=== PATIENT | female | born 1970 | race Two or more races ===

== ENCOUNTER 2022-02-14 00:06 | Emergency (ER) | payer SELFPAY ==
[~2022-02-14] VITALS: Ht 162.6 cm; Wt 114.3 kg
[2022-02-14 01:30] LABS: Basophils # (auto) 0.1 10 ^3/uL (0-0.2); Basophils % (auto) 0.6 % (0.0-2.0); Eosinophils # (auto) 0.2 10 ^3/uL (0-0.8); Eosinophils % (auto) 1.5 % (0.0-7.0); Hematocrit 42.5 % (36.0-46.0); Hemoglobin 14.8 g/dL (12.2-16.2); Lymphocytes # (auto) 1.3 10 ^3/uL (0.4-5.4); Mean Corpuscular Hemoglobin 30.7 pg (28.0-32.0); Mean Corpuscular Hgb Conc. 34.8 g/dL (32.0-36.0); Mean Corpuscular Volume 88.1 fL (80.0-100.0); Monocytes # (auto) 0.8 10 ^3/uL (0-1.3); Monocytes % (auto) 7.4 % (0.0-12.0); Neutrophils # (auto) 8.7 10 ^3/uL (1.6-8.6); Neutrophils % (auto) 78.5 % (37.0-80.0); Red Blood Cells 4.82 10^6/uL (4.0-5.20); Red Cell Distribution Width 12.8 % (11.8-14.3); White Blood Cell 11.1 10^3/uL (4.4-10.8)
[2022-02-14 01:39] LABS: Albumin 3.7 g/dL (3.4-5.0); BUN/Creatinine Ratio 14.6; Calcium 9.2 mg/dL (8.5-10.1); Magnesium 2.4 mg/dL (1.6-2.6); Potassium 3.8 mmol/L (3.5-5.1)
[2022-02-14 01:44] LABS: Bilirubin, Total 0.8 mg/dL (0.2-1.0); Total Protein 7.2 g/dL (6.4-8.2)
[2022-02-14 01:52] VITALS: BP 154/94
[2022-02-14] MEDS ORDERED: ASPirin 325 MG TAB PO ONE (02:00)
== END 2022-02-14 04:20 | disposition left against medical advice (07) ==
LOC: ER 00:17
DX: R07.89 Other chest pain (principal); R11.0 Nausea; Z53.21 Procedure and treatment not carried out due to patient leaving prior to being seen by health care provider
CPT/HCPCS: 36415; 80053; 83735; 84484; 85025; 93005

== ENCOUNTER 2023-06-14 11:40 | Inpatient (IN) | payer MEDICAID, OTHER ==
[~2023-06-14] VITALS: Ht 167.6 cm; Wt 114.8 kg
[2023-06-14 12:40] LABS: Urine Bacteria MOD /hpf (None Seen); Urine Blood Negative /uL (Negative); Urine Mucus FEW (None Seen); Urine Specific Gravity 1.031 (1.001-1.035); Urine WBC 6 /hpf (0 - 5)
[2023-06-14 12:40] LABS: Albumin 4.2 g/dL (3.4-5.0); Calcium 9.7 mg/dL (8.5-10.1); Potassium 4.3 mmol/L (3.5-5.1)
[2023-06-14 12:44] LABS: BUN/Creatinine Ratio 12.5 (10.0-20.0); Total Protein 7.4 g/dL (6.4-8.2)
[2023-06-14 12:47] LABS: Basophils # (auto) 0.1 10 ^3/uL (0-0.2); Basophils % (auto) 0.8 % (0.0-2.0); Eosinophils # (auto) 0.1 10 ^3/uL (0-0.8); Eosinophils % (auto) 1.9 % (0.0-7.0); Hematocrit 46.9 % (36.0-46.0); Hemoglobin 15.8 g/dL (12.2-16.2); Lymphocytes % (auto) 26.3 % (10.0-50.0); Mean Corpuscular Hemoglobin 30.1 pg (28.0-32.0); Mean Corpuscular Hgb Conc. 33.7 g/dL (32.0-36.0); Mean Corpuscular Volume 89.2 fL (80.0-100.0); Monocytes # (auto) 0.7 10 ^3/uL (0-1.3); Monocytes % (auto) 9.6 % (0.0-12.0); Neutrophils # (auto) 4.8 10 ^3/uL (1.6-8.6); Neutrophils % (auto) 61.4 % (37.0-80.0); Nucleated Red Blood Cells % 0.2 %; Red Blood Cells 5.26 10^6/uL (4.0-5.20); Red Cell Distribution Width 13.1 % (11.8-14.3); White Blood Cell 7.8 10^3/uL (4.4-10.8)
[2023-06-14] MEDS ORDERED: MORPHINE SULFATE 4 MG/ML SYR/VIAL IV ONE (15:00)
[2023-06-14] MEDS ORDERED: SODIUM CHLORIDE 0.9% 500 ML IVB ONE (15:00)
[2023-06-14] MEDS ORDERED: ONDANSETRON HCL 4 MG/2 ML VIAL IV ONE (15:00)
[2023-06-14] MEDS ORDERED: PANTOPRAZOLE 40 MG/10 ML VIAL INJ IV ONE (15:00)
[2023-06-14] MEDS ORDERED: HYDROmorphone HCL 2 MG/ML VL/or syr IV PRN (16:30)
[2023-06-14] MEDS ORDERED: DOCUSATE SOD 100 MG CAP PO PRN (16:30)
[2023-06-14] MEDS ORDERED: PIPERACILLIN-TAZO 4.5GM 100 ML IV SCH (16:30)
[2023-06-14] MEDS ORDERED: ACETAMINOPHEN 325 MG TAB PO PRN (16:30)
[2023-06-14] MEDS ORDERED: HYDROcodone-ACET 5/325MG TAB PO PRN (16:30)
[2023-06-14] MEDS ORDERED: hydrALAZINE HCL 20 MG/ML VL IV PRN (16:45)
[2023-06-14] MEDS ORDERED: diphenhdrAMINE HCL 50 MG/1 ML VL IV ONE (18:00)
[2023-06-14] MEDS: PANTOPRAZOLE 40 MG/10 ML VIAL INJ IV SCH (22:45)
[2023-06-14] MEDS: SODIUM CHLOR 0.9% PF (SALINE LOCK) 10ML VIAL/SYR IV SCH (22:45)
[2023-06-14] MEDS: metroNIDAZOLE 500MG/100ML 100 ML IV SCH (22:46)
[2023-06-15] MEDS: SODIUM CHLOR 0.9% PF (SALINE LOCK) 10ML VIAL/SYR IV SCH ×3 (06:00→21:10)
[2023-06-15] MEDS ORDERED: cefTRIAXone 1GM/50ML D5W 50 ML IV SCH (09:00)
[2023-06-15] MEDS: metroNIDAZOLE 500MG/100ML 100 ML IV SCH ×3 (09:10→21:09)
[2023-06-15] MEDS: PANTOPRAZOLE 40 MG/10 ML VIAL INJ IV SCH ×2 (09:39→21:09)
[2023-06-15 10:40] LABS: Basophils # (auto) 0.1 10 ^3/uL (0-0.2); Basophils % (auto) 0.9 % (0.0-2.0); Eosinophils # (auto) 0.3 10 ^3/uL (0-0.8); Eosinophils % (auto) 3.5 % (0.0-7.0); Hematocrit 43.2 % (36.0-46.0); Hemoglobin 14.4 g/dL (12.2-16.2); Lymphocytes # (auto) 1.1 10 ^3/uL (0.4-5.4); Lymphocytes % (auto) 12.3 % (10.0-50.0); Mean Corpuscular Hemoglobin 29.9 pg (28.0-32.0); Mean Corpuscular Hgb Conc. 33.4 g/dL (32.0-36.0); Mean Corpuscular Volume 89.7 fL (80.0-100.0); Monocytes # (auto) 0.5 10 ^3/uL (0-1.3); Monocytes % (auto) 5.4 % (0.0-12.0); Neutrophils # (auto) 6.9 10 ^3/uL (1.6-8.6); Neutrophils % (auto) 77.9 % (37.0-80.0); Red Blood Cells 4.81 10^6/uL (4.0-5.20); Red Cell Distribution Width 13.1 % (11.8-14.3); White Blood Cell 8.8 10^3/uL (4.4-10.8)
[2023-06-15 10:58] LABS: Albumin 3.6 g/dL (3.4-5.0)
[2023-06-15 11:03] LABS: BUN/Creatinine Ratio 10.8 (10.0-20.0); Bilirubin, Total 0.9 mg/dL (0.2-1.0); Total Protein 7.3 g/dL (6.4-8.2)
[2023-06-15 13:49] LABS: Cholesterol 169 mg/dL (< 200); HDL Cholesterol 35 mg/dL (40-59); LDL Cholesterol 113 mg/dL (< 100); Triglycerides 114 mg/dL (< 150)
[2023-06-15 14:20] VITALS: BP 108/84; PULSE 86; RESP 16; TEMP 98.6; O2SAT 94
[2023-06-15] MEDS: ONDANSETRON HCL 4 MG/2 ML VIAL IV PRN (15:59)
[2023-06-15 16:05] VITALS: RESP 18; O2SAT 98
[2023-06-15] MEDS: cefTRIAXone 1GM/50ML D5W 50 ML IV SCH (17:17)
[2023-06-15 17:39] VITALS: BP 123/63; PULSE 77; RESP 18; TEMP 98.6; O2SAT 98
[2023-06-15 20:00] VITALS: PULSE 71; PULSE 89; RESP 22; O2SAT 93
[2023-06-16 05:00] VITALS: BP 129/60; PULSE 77; RESP 22; TEMP 98.3; O2SAT 94
[2023-06-16] MEDS: SODIUM CHLOR 0.9% PF (SALINE LOCK) 10ML VIAL/SYR IV SCH ×2 (05:00→14:13)
[2023-06-16] MEDS: metroNIDAZOLE 500MG/100ML 100 ML IV SCH ×2 (05:00→14:14)
[2023-06-16] MEDS: ONDANSETRON HCL 4 MG/2 ML VIAL IV PRN (05:00)
[2023-06-16 08:00] VITALS: PULSE 60; PULSE 69; RESP 16; O2SAT 96
[2023-06-16] MEDS ORDERED: OMNIPAQUE 12mg/ml 500ml ORAL SOLUTION PO ONE (08:42)
[2023-06-16 09:00] VITALS: BP 103/62; PULSE 60; RESP 16; TEMP 98.6; O2SAT 96
[2023-06-16 09:11] LABS: Basophils # (auto) 0.1 10 ^3/uL (0-0.2); Basophils % (auto) 0.9 % (0.0-2.0); Eosinophils # (auto) 0.2 10 ^3/uL (0-0.8); Eosinophils % (auto) 3.1 % (0.0-7.0); Hematocrit 42.4 % (36.0-46.0); Hemoglobin 14.3 g/dL (12.2-16.2); Lymphocytes # (auto) 1.1 10 ^3/uL (0.4-5.4); Lymphocytes % (auto) 17.4 % (10.0-50.0); Mean Corpuscular Hemoglobin 30.4 pg (28.0-32.0); Mean Corpuscular Hgb Conc. 33.8 g/dL (32.0-36.0); Mean Corpuscular Volume 90.2 fL (80.0-100.0); Monocytes # (auto) 0.5 10 ^3/uL (0-1.3); Monocytes % (auto) 8.3 % (0.0-12.0); Neutrophils # (auto) 4.4 10 ^3/uL (1.6-8.6); Neutrophils % (auto) 70.3 % (37.0-80.0); Nucleated Red Blood Cells % 0.1 %; Red Blood Cells 4.71 10^6/uL (4.0-5.20); Red Cell Distribution Width 13.1 % (11.8-14.3); White Blood Cell 6.3 10^3/uL (4.4-10.8)
[2023-06-16] MEDS: PANTOPRAZOLE 40 MG/10 ML VIAL INJ IV SCH (09:18)
[2023-06-16 09:29] LABS: Potassium 4.2 mmol/L (3.5-5.1)
[2023-06-16] MEDS ORDERED: IOHEXOL 300 MG/ML 100ML BOTTLE IJ ONE (11:49)
[2023-06-16 13:00] VITALS: BP 116/59; PULSE 68; RESP 16; TEMP 98.5; O2SAT 92
[2023-06-16] MEDS ORDERED: MET500T PO (14:23)
[2023-06-16] MEDS ORDERED: LEVO500T91 PO (14:23)
[2023-06-16] MEDS ORDERED: PANT40TA2 PO (14:23)
[2023-06-16 14:55] VITALS: BP 116/59; PULSE 68; RESP 16; TEMP 98.5; O2SAT 92
[2023-06-16] MEDS: cefTRIAXone 1GM/50ML D5W 50 ML IV SCH (15:59)
[2023-06-19] MEDS ORDERED: ZOFR4T PO (10:53)
== END 2023-06-16 17:50 | disposition home or self-care (01) ==
LOC: ER 11:40 → TELE 16:39 → TELE-CENTR 06-15 13:52
PROVIDERS: ADMIT Internal Medicine; ATTEND Student in an Organized Health Care Education/Training Program
DX: K80.50 Calculus of bile duct without cholangitis or cholecystitis without obstruction (principal); E66.01 Morbid (severe) obesity due to excess calories; R73.9 Hyperglycemia, unspecified; N39.0 Urinary tract infection, site not specified; K21.9 Gastro-esophageal reflux disease without esophagitis; Z88.1 Allergy status to other antibiotic agents; Z90.710 Acquired absence of both cervix and uterus; Z88.8 Allergy status to other drugs, medicaments and biological substances; Z68.41 Body mass index [BMI] 40.0-44.9, adult
CPT/HCPCS: 36415; 74177; 76705; 78226; 80048; 80053; 80061; 81001; 83036; 83690; 84484; 85025; 87040; 93005; C9113; G0378; J0696; J2405; J2543; J3490

== ENCOUNTER 2023-12-01 12:53 | Emergency (ER) | payer BC, MEDICAID ==
[~2023-12-01] VITALS: Ht 162.6 cm; Wt 112.4 kg
[~2023-12-01 12:53] MED LIST: LEVO500T91 PO; MET500T PO; PANT40TA2 PO; ZOFR4T PO
[2023-12-01 14:03] VITALS: BP 135/90
[2023-12-01] MEDS ORDERED: IPRATROPIUM BROM 0.5 MG/2.5ML INH SOL NEB ONE (14:15)
[2023-12-01] MEDS ORDERED: ALBUTEROL SULF 2.5 MG/0.5ML(0.5%) NEB SOLN NEB ONE (14:15)
[2023-12-01] MEDS ORDERED: CIPR-173 PO (14:25)
[2023-12-01] MEDS ORDERED: PRED20TA2 PO (14:25)
[2023-12-01] MEDS ORDERED: ALBU108A5 IN (14:25)
[2023-12-01 14:41] VITALS: PULSE 102; RESP 17; O2SAT 98
== END 2023-12-01 14:43 | disposition home or self-care (01) ==
LOC: ER 12:53
DX: J20.9 Acute bronchitis, unspecified (principal); R07.89 Other chest pain; K21.9 Gastro-esophageal reflux disease without esophagitis; E03.9 Hypothyroidism, unspecified; Z90.49 Acquired absence of other specified parts of digestive tract; Z90.710 Acquired absence of both cervix and uterus
CPT/HCPCS: 71046; 94640; 99283; J7644

== ENCOUNTER 2024-04-27 12:02 | Emergency (ER) | payer SELFPAY ==
[~2024-04-27] VITALS: Ht 160 cm; Wt 112.8 kg
[~2024-04-27 12:02] MED LIST changes: +ALBU108A5 IN; +CIPR-173 PO; +PRED20TA2 PO
[2024-04-27 12:51] VITALS: BP 123/67; PULSE 94; RESP 18; TEMP 97.9; O2SAT 100
[2024-04-27] MEDS ORDERED: IBUP-1456 PO (13:25)
[2024-04-27] MEDS ORDERED: AUG875T PO (13:25)
== END 2024-04-27 13:29 | disposition home or self-care (01) ==
LOC: ER 12:02
DX: J01.00 Acute maxillary sinusitis, unspecified (principal); K21.9 Gastro-esophageal reflux disease without esophagitis; Z88.1 Allergy status to other antibiotic agents; Z88.8 Allergy status to other drugs, medicaments and biological substances; Z79.899 Other long term (current) drug therapy; Z90.49 Acquired absence of other specified parts of digestive tract; Z98.890 Other specified postprocedural states; Z90.710 Acquired absence of both cervix and uterus

== ENCOUNTER 2024-05-07 13:06 | Emergency (ER) | payer SELFPAY ==
[~2024-05-07] VITALS: Ht 160 cm; Wt 113.0 kg
[~2024-05-07 13:06] MED LIST changes: +AUG875T PO; +IBUP-1456 PO
[2024-05-07] MEDS ORDERED: NAPR-746 PO (14:55)
[2024-05-07 15:08] VITALS: BP 148/88; PULSE 94; RESP 18; TEMP 98.5; O2SAT 95
[2024-05-07] MEDS: KETOROLAC TROMETH 60MG/2ML VIAL IM ONE (15:09)
== END 2024-05-07 14:54 | disposition home or self-care (01) ==
LOC: ER 13:06
DX: K08.89 Other specified disorders of teeth and supporting structures (principal); E03.9 Hypothyroidism, unspecified; K21.9 Gastro-esophageal reflux disease without esophagitis; Z79.899 Other long term (current) drug therapy; Z79.52 Long term (current) use of systemic steroids; Z79.1 Long term (current) use of non-steroidal anti-inflammatories (NSAID); Z88.1 Allergy status to other antibiotic agents; Z88.8 Allergy status to other drugs, medicaments and biological substances; Z90.49 Acquired absence of other specified parts of digestive tract; Z90.89 Acquired absence of other organs; Z90.710 Acquired absence of both cervix and uterus; Z98.890 Other specified postprocedural states
CPT/HCPCS: 96372; 99283; J1885

== ENCOUNTER 2024-12-20 10:38 | Inpatient (IN) | payer MEDICAID ==
[~2024-12-20] VITALS: Ht 160 cm; Wt 114.1 kg
[~2024-12-20 10:38] MED LIST changes: +IBUP-1455 PO; +NAPR-746 PO
--- NOTE | 2024-12-20 10:58 | ED.PDOC ---
GI ASSESSMENT HPI Comments This is a 54-year-old female who comes in with chief complaint of abdominal pain. The patient states that the pain started approximately three days ago. The pain is associated with nausea but no vomiting or diarrhea. She states that the pain is burning in nature and is rated as a 6/10. She does have a history of gallstones but also states that she ran out of her Protonix and the pain feels somewhat similar to her GERD. The patient was able to ambulate into the emergency department's without any difficulty. Time Seen by MD: 10:41 Primary Care Provider: RAJWINDER Reviewed Notes: Nurses Notes, Medications, Allergies (Allergies listed above) Allergies: Coded Allergies: Azithromycin (Verified Allergy, Unknown, 02/14/22) Guaifenesin (Verified Allergy, Unknown, 02/14/22) Piperacillin (Verified Allergy, Unknown, 06/14/23) Pseudoephedrine (Verified Allergy, Unknown, 02/14/22) Tazobactam (Verified Allergy, Unknown, 06/14/23) Tetracycline (Verified Allergy, Unknown, 02/14/22) Home Meds Active Scripts Prednisone (Prednisone) 20 Mg Tab, 40 MG PO DAILY for 5 Days, #10 TAB 0 Refills Prov:MELIZA JORGE AGRICULTURAL EDUCATION PROFESSOR 09/18/24 Ibuprofen Micronized (Ibuprofen) 800 Mg Tab, 800 MG PO TID for 14 Days, #42 TAB 0 Refills Prov:MELIZA JORGE AGRICULTURAL EDUCATION PROFESSOR 09/18/24 Naproxen (Naproxen) 500 Mg Tab, 500 MG PO BIDPC for 10 Days, #20 TAB 0 Refills Prov:MELIZA JORGE NP 05/07/24 Ibuprofen (Ibuprofen) 800 Mg Tab, 1 TAB PO TID, #30 TAB Prov:GÓMEZ ARTEAGA 04/27/24 Prednisone (Prednisone) 20 Mg Tab, 60 MG PO DAILY for 6 Days, #18 TAB Prov:GÓMEZ ARTEAGA 04/27/24 Amoxicillin & Pot Clavulanate (AUGMENTIN TABLET) 875 Mg Tb, 875 MG PO BID, #20 TAB Prov:GÓMEZ ARTEAGA 04/27/24 Prednisone (Prednisone) 20 Mg Tab, 60 MG PO DAILY, #15 MG Prov:GÓMEZ ARTEAGA 12/01/23 Albuterol Sulfate (Albuterol Sulfate Hfa) 108 Mcg/Act Aer, 108 MCG IN TID, #18 AER Prov:GÓMEZ ARTEAGA 12/01/23 Ciprofloxacin Hcl (Cipro) 500 Mg Tab, 1 TAB PO BID, #14 TAB Prov:GÓMEZ ARTEAGA 12/01/23 Ondansetron Odt 4MG Tab (ZOFRAN PO) 4 Mg Tb, 4 MG PO Q6HPRN PRN for 10 Days, #40 TAB ODT TAB-DISSOLVE IN MOUTH, THEN SWALLOW Prov:SHELLY FLYNN MD 06/19/23 Pantoprazole Sodium Sesquihydr (Protonix) 40 Mg Tab, 40 MG PO QAM, #30 TAB Prov:SHELLY FLYNN MD 06/16/23 Metronidazole (Metronidazole) 500 Mg Tab, 500 MG PO Q8HR for 7 Days, #21 TAB Prov:SHELLY FLYNN MD 06/16/23 Levofloxacin Hemihydrate (LEVAQUIN 500 MG) 500 Mg Tab, 500 MG PO DAILY for 7 Days, #7 TAB Prov:SHELLY FLYNN MD 06/16/23 Information Source: Patient Mode of Arrival: Ambulatory Timing: Days (Started three days ago) Duration: Since onset Prehospital treatment: None Quality: Burning, Cramping Vomitus: None Stool: Normal Severity: Moderate Recent: Other (History of gallstones and GERD) Recent Hx of: None Pain Location: Epigastric Modifying Factors: Nothing Associated sign and symptoms: Nausea, Abdominal Pain Past Medical History PAST MEDICAL HISTORY: Gallstones, GERD, Thyroid Past Medical History (Other): Goiter Surgical History: Appendectomy, , Hysterectomy STAFF FIELD ENGINEER History: No Pertinent STAFF FIELD ENGINEER History Family History Family History: Family hx of DM, Family hx of Cancer, Family hx of HTN Social History Smoker: Non-Smoker Alcohol: Denies ETOH Use Drugs: Denies Drug Use Lives In: Home Constitutional: denies: chills, diaphoresis, fatigue, fever, malaise, sweats, weakness, others EENTM: denies: blurred vision, double vision, ear bleeding, ear discharge, ear drainage, ear pain, ear ringing, eye pain, eye redness, hearing loss, mouth pain, mouth swelling, nasal discharge, nose bleeding, nose congestion, nose pain, photophobia, tearing, throat pain, throat swelling, voice changes, others Respiratory: denies: cough, hemoptysis, orthopnea, SOB at rest, shortness of breath, SOB with excertion, stridor, wheezing, others Cardiovascular: denies: chest pain, dizzy spells, diaphoresis, Dyspnea on exertion, edema, irregular heart beat, left arm pain, lightheadedness, palpitations, PND, syncope, others Gastrointestinal: reports: abdominal pain, nausea; denies: abdomen distended, blood streaked bowels, constipated, diarrhea, dysphagia, difficulty swallowing, hematemesis, melena, poor appetite, poor fluid intake, rectal bleeding, rectal pain, vomiting, others Genitourinary: denies: abnormal vagina bleeding, burning, dyspareunia, dysuria, flank pain, frequency, hematuria, incontinence, pain, , vagina discharge, urgency, others Neurological: denies: dizziness, fainting, headache, left sided numbness, left sided weakness, numbness, paresthesia, pre-existing deficit, right sided numbness, right sided weakness, seizure, speech problems, tingling, tremors, weakness, others Musculoskeletal: denies: back pain, gout, joint pain, joint swelling, muscle pain, muscle stiffness, neck pain, others Integumetry: denies: bruises, change in color, change in hair/nails, dryness, laceration, lesions, lumps, rash, wounds, others Allergic/Immunocompromised: denies: Difficulty Healing, Frequent Infections, Hives, Itching, others Hematologic/Lymphatic: denies: anemia, blood clots, easy bleeding, easy bruising, swollen glands, others Endocrine: denies: excessive hunger, excessive sweating, excessive thirst, excessive urination, flushing, intolerance to cold, intolerance to heat, unexplained weight gain, unexplained weight loss, others Psychiatric: denies: anxiety, bipolar disorder, depression, hopeless, panic disorder, schizophrenia, sleepless, suicidal, others Physical Exam General Appearance: Moderate Distress HEENT: Normal ENT Inspection, Pharynx Normal, TMs Normal Neck: Full Range of Motion, Non-Tender, Normal, Normal Inspection Respiratory: Chest Non-Tender, Lungs Clear, No Accessory Muscle Use, No Respiratory Distress, Normal Breath Sounds Cardiovascular: No Edema, No JVD, No Murmur, No Gallop, Normal Peripheral Pulses, Regular Rate/Rhythm Breast Exam: Deferred Gastrointestinal: Epigastric, No Organomegaly, No Pulsatile Mass, Normal Bowel Sounds, Soft, Tenderness Genitalia: Deferred Pelvic: Deferred Rectal: Deferred Extremities: No calf tenderness, Normal capillary refill, Normal inspection, Normal range of motion, Non-tender, No pedal edema Musculoskeletal : Apperance: Normal Neurologic: Alert, store grocery merchandiser II-XII nml as Tested, No Motor Deficits, Normal Affect, Normal Mood, No Sensory Deficits Cerebellar Function: Normal Reflexes: Normal Skin: Dry, Normal Color, Warm Lymphatic: No Adenopathy Was a procedure done? Was a procedure done?: No GI differential Dx Differential Diagnosis: Cholangitis, Cholecystitis, Gastritis/PUD, Gastroenteritis, UTI X-Ray, Labs, Meds, VS Vital Signs Date Time Temp Pulse Resp B/P (MAP) Pulse Ox O2 Delivery O2 Flow Rate FiO2 12/20/24 11:26 97.9 118 18 125/77 (93) 96 97.9 12/20/24 11:26 118 18 96 Room Air 12/20/24 11:11 98.1 78 18 144/97 (113) 98 Lab Test 12/20/24 11:35 Range/Units White Blood Count 10.8 4.4-10.8 10^3/uL Red Blood Count 5.57 H 4.0-5.20 10^6/uL Hemoglobin 17.0 H 12.2-16.2 g/dL Hematocrit 49.6 H 36.0-46.0 % Mean Corpuscular Volume 89.1 80.0-100.0 fL Mean Corpuscular Hemoglobin 30.6 28.0-32.0 pg Mean Corpuscular Hemoglobin Concent 34.4 32.0-36.0 g/dL Red Cell Distribution Width 12.8 11.8-14.3 % Platelet Count 390 140-450 10^3/uL Mean Platelet Volume 7.9 6.9-10.8 fL Neutrophils (%) (Auto) 75.3 37.0-80.0 % Lymphocytes (%) (Auto) 16.5 10.0-50.0 % Monocytes (%) (Auto) 5.7 0.0-12.0 % Eosinophils (%) (Auto) 1.2 0.0-7.0 % Basophils (%) (Auto) 1.3 0.0-2.0 % Neutrophils # (Auto) 8.1 1.6-8.6 10 ^3/uL Lymphocytes # (Auto) 1.8 0.4-5.4 10 ^3/uL Monocytes # (Auto) 0.6 0-1.3 10 ^3/uL Eosinophils # (Auto) 0.1 0-0.8 10 ^3/uL Basophils # (Auto) 0.1 0-0.2 10 ^3/uL Nucleated Red Blood Cells 0.1 % Sodium Level 136 136-145 mmol/L Potassium Level 4.2 3.5-5.1 mmol/L Chloride Level 101 98-107 mmol/L Carbon Dioxide Level 29 20-31 mmol/L Anion Gap 6 5-15 Blood Urea Nitrogen 12 9-23 mg/dL Creatinine 0.92 0.550-1.02 mg/dL Glomerular Filtration Rate Calc 73 >90 mL/min BUN/Creatinine Ratio 13.0 10.0-20.0 Serum Glucose 170 H 74-106 mg/dL Calcium Level 11.2 H 8.7-10.4 mg/dL Total Bilirubin 0.8 0.2-1.0 mg/dL Aspartate Amino Transferase (AST) 24 13-40 U/L Alanine Aminotransferase (ALT) 32 7-40 U/L Alkaline Phosphatase 108 46-116 U/L Total Protein 7.8 5.7-8.2 g/dL Albumin 4.9 H 3.2-4.8 g/dL Lipase 34 12-53 U/L ULTRASOUND OF THE GALLBLADDER SHOWS: IMPRESSION: 1. Hepatic steatosis. 2. Cholelithiasis. The patient's CBC is within normal limits The chemistry panel is within normal limits. The bilirubin is within normal limits An IV Hep-Lock is being established The patient was given Protonix 40 mg IV push The patient was given Zofran 4 mg IV push The patient was being admitted at this time The patient will return to the emergency department's the condition worsens. Images Reviewed?: Images reviewed and evaluated by me Time of 1ST Reevaluation: 10:58 Reevaluation 1ST: Unchanged Patient Education/Counseling: Diagnosis, Treatment, Prognosis Family Education/Counseling: No Family Present Departure 1 Departure Time of Disposition: 12:11 Impression: Primary Impression: Intractable abdominal pain Additional Impression: Cholelithiasis Qualified Codes: K80.20 - Calculus of gallbladder without cholecystitis without obstruction Disposition: 09 ADMITTED INPATIENT Admit to: Med Surg Condition: Fair Critical Care Note Critical Care Time?: No Stability Stability form required: Yes Unstable for transfer: ED Physician Assesment (Clinical assesment) Heart Score Heart Score: Heart Score Response (Comments) Value History N/A 0 EKG N/A 0 Age N/A 0 Risk Factors N/A 0 Troponin N/A 0 Total 0 MARTIN BOLAÑOS MD Dec 20, 2024 10:58
[2024-12-20 11:51] LABS: Basophils # (auto) 0.1 10 ^3/uL (0-0.2); Basophils % (auto) 1.3 % (0.0-2.0); Eosinophils # (auto) 0.1 10 ^3/uL (0-0.8); Eosinophils % (auto) 1.2 % (0.0-7.0); Hematocrit 49.6 % (36.0-46.0); Lymphocytes # (auto) 1.8 10 ^3/uL (0.4-5.4); Lymphocytes % (auto) 16.5 % (10.0-50.0); Mean Corpuscular Hemoglobin 30.6 pg (28.0-32.0); Mean Corpuscular Hgb Conc. 34.4 g/dL (32.0-36.0); Mean Corpuscular Volume 89.1 fL (80.0-100.0); Monocytes # (auto) 0.6 10 ^3/uL (0-1.3); Monocytes % (auto) 5.7 % (0.0-12.0); Neutrophils # (auto) 8.1 10 ^3/uL (1.6-8.6); Neutrophils % (auto) 75.3 % (37.0-80.0); Nucleated Red Blood Cells % 0.1 %; Platelet Count (auto) 390 10^3/uL (140-450); Red Blood Cells 5.57 10^6/uL (4.0-5.20); Red Cell Distribution Width 12.8 % (11.8-14.3); White Blood Cell 10.8 10^3/uL (4.4-10.8)
--- NOTE | 2024-12-20 11:52 | DVH ---
ULTRASOUND ABDOMEN LIMITED INDICATION: pain TECHNIQUE: Multiple real-time sonographic images of the abdomen were obtained. COMPARISON: US GALLBLADDER on DOS: 06/18/23, US GALLBLADDER on DOS: 06/14/23 FINDINGS: The visualized liver parenchyma appears echogenic consistent with steatosis. . The liver measures 17.3 cm. No discrete hepatic lesion or intrahepatic biliary ductal dilatation is identified. There are mobile gallstones seen within the gallbladder. There is no gallbladder wall thickening or p ericholecystic fluid. The common biliary duct is not dilated. The right kidney measures 10.8 cm length. No sonographic evidence of nephrolithiasis or hydronephro sis. Visualized portions of the pancreas appears within normal limits. IMPRESSION: 1. Hepatic steatosis. 2. Cholelithiasis. HS:Y
[2024-12-20 12:05] LABS: Alanine Aminotransferase 32 U/L (7-40); Alkaline Phosphatase 108 U/L (46-116); Anion Gap 6 (5-15); Aspartate Aminotransferase 24 U/L (13-40); Blood Urea Nitrogen 12 mg/dL (9-23); Carbon Dioxide 29 mmol/L (20-31); Chloride 101 mmol/L (98-107); Lipase 34 U/L (12-53); Potassium 4.2 mmol/L (3.5-5.1); Sodium 136 mmol/L (136-145)
[2024-12-20 12:06] LABS: Albumin 4.9 g/dL (3.2-4.8); Bilirubin, Total 0.8 mg/dL (0.2-1.0); Calcium 11.2 mg/dL (8.7-10.4); Glucose 170 mg/dL (74-106); Total Protein 7.8 g/dL (5.7-8.2)
[2024-12-20] MEDS: PANTOPRAZOLE 40 MG/10 ML VIAL INJ IV ONE (12:32)
[2024-12-20] MEDS: ONDANSETRON HCL 4 MG/2 ML VIAL IV ONE (12:33)
[2024-12-20 13:27] VITALS: PULSE 118; RESP 16; O2SAT 98
[2024-12-20 14:21] LABS: Urine Bacteria MANY /hpf (None Seen); Urine Blood Negative /uL (Negative); Urine Clarity Turbid (Clear); Urine Color Yellow (Yellow); Urine Mucus FEW (None Seen); Urine Protein, UAD Negative (Negative); Urine Specific Gravity 1.025 (1.001-1.035); Urine Squamous Epithelial Cell FEW /hpf (<5); Urine Urobilinogen Normal (Negative); Urine WBC 2 /HPF (0-5); Urine pH 6.5 (5.0-9.0)
[2024-12-20] MEDS: PANTOPRAZOLE 40 MG TAB PO SCH (17:30)
--- NOTE | 2024-12-20 17:39 | DVHHP2 ---
Admitting Diagnosis: Abdominal pain History of Present Illness This is a 54-year-old female who comes in with chief complaint of abdominal pain. The patient states that the pain started approximately three days ago. The pain is associated with nausea but no vomiting or diarrhea. She states that the pain is burning in nature and is rated as a 6/10. She does have a history of gallstones but also states that she ran out of her Protonix and the pain feels somewhat similar to her GERD. The patient was able to ambulate into the emergency department's without any difficulty. PAST MEDICAL HISTORY: Gallstones, GERD, Thyroid Past Medical History (Other): Goiter Surgical History: Appendectomy, , Hysterectomy CONSTRUCTION CHECKER History: No Pertinent CONSTRUCTION CHECKER History Family History Family History: Family hx of DM, Family hx of Cancer, Family hx of HTN Social History Smoker: Non-Smoker Alcohol: Denies ETOH Use Drugs: Denies Drug Use Lives In: Home Patient Family History: Cardiac disorder G8 MOTHER G8 FATHER Chronic obstructive pulmonary disease G8 MOTHER G8 FATHER High cholesterol G8 MOTHER G8 FATHER Hypertension G8 MOTHER G8 FATHER Allergies: Coded Allergies: Azithromycin (Verified Allergy, Unknown, 02/14/22) Guaifenesin (Verified Allergy, Unknown, 02/14/22) Piperacillin (Verified Allergy, Unknown, 06/14/23) Pseudoephedrine (Verified Allergy, Unknown, 02/14/22) Tazobactam (Verified Allergy, Unknown, 06/14/23) Tetracycline (Verified Allergy, Unknown, 02/14/22) Home Meds Active Scripts Prednisone (Prednisone) 20 Mg Tab, 40 MG PO DAILY for 5 Days, #10 TAB 0 Refills Prov:MELIZA JORGE CLERK ANALYST 09/18/24 Ibuprofen Micronized (Ibuprofen) 800 Mg Tab, 800 MG PO TID for 14 Days, #42 TAB 0 Refills Prov:MELIZA JORGE CLERK ANALYST 09/18/24 Naproxen (Naproxen) 500 Mg Tab, 500 MG PO BIDPC for 10 Days, #20 TAB 0 Refills Prov:MELIZA JORGE CLERK ANALYST 05/07/24 Ibuprofen (Ibuprofen) 800 Mg Tab, 1 TAB PO TID, #30 TAB Prov:GÓMEZ ARTEAGA 04/27/24 Prednisone (Prednisone) 20 Mg Tab, 60 MG PO DAILY for 6 Days, #18 TAB Prov:GÓMEZ ARTEAGA 04/27/24 Amoxicillin & Pot Clavulanate (AUGMENTIN TABLET) 875 Mg Tb, 875 MG PO BID, #20 TAB Prov:GÓMEZ ARTEAGA 04/27/24 Prednisone (Prednisone) 20 Mg Tab, 60 MG PO DAILY, #15 MG Prov:GÓMEZ ARTEAGA 12/01/23 Albuterol Sulfate (Albuterol Sulfate Hfa) 108 Mcg/Act Aer, 108 MCG IN TID, #18 A ER Prov:GÓMEZ ARTEAGA 12/01/23 Ciprofloxacin Hcl (Cipro) 500 Mg Tab, 1 TAB PO BID, #14 TAB Prov:GÓMEZ ARTEAGA 12/01/23 Ondansetron Odt 4MG Tab (ZOFRAN PO) 4 Mg Tb, 4 MG PO Q6HPRN PRN for 10 Days, #40 TAB ODT TAB-DISSOLVE IN MOUTH, THEN SWALLOW Prov:SHELLY FLYNN MD 06/19/23 Pantoprazole Sodium Sesquihydr (Protonix) 40 Mg Tab, 40 MG PO QAM, #30 TAB Prov:SHELLY FLYNN MD 06/16/23 Metronidazole (Metronidazole) 500 Mg Tab, 500 MG PO Q8HR for 7 Days, #21 TAB Prov:SHELLY FLYNN MD 06/16/23 Levofloxacin Hemihydrate (LEVAQUIN 500 MG) 500 Mg Tab, 500 MG PO DAILY for 7 Days, #7 TAB Prov:SHELLY FLYNN MD 06/16/23 Vital Signs Vital Signs Date Time Temp Pulse Resp B/P (MAP) Pulse Ox O2 Delivery O2 Flow Rate FiO2 12/20/24 17:23 98.4 94 12 109/71 (84) 96 98.4 12/20/24 13:27 Room Air* 0 21 Physical Exam Generally -54 years old woman, well nourished well developed. No apparent distress HEENT-atraumatic normocephalic Heart-regular rate and rhythm Lungs clear to auscultate Abdomen soft, nontender nondistended musculoskeletal-no edema cyanosis Neuro-AO x3, no focal deficits Results Labs Test 12/20/24 12:35 12/20/24 11:35 Range/Units Urine Color Yellow Yellow Urine Clarity Turbid H Clear Urine pH 6.5 5.0-9.0 Urine Specific [place] 1.025 1.001-1.035 Urine Protein Negative Negative Urine Ketones Negative Negative Urine Blood Negative Negative /uL Urine Nitrite Negative Negative Urine Bilirubin Negative Negative Urine Urobilinogen Normal Negative mg/dL Urine Leukocyte Esterase Negative Negative /uL Urine RBC 3 0 - 4 /hpf Urine Microscopic WBC 2 0-5 /HPF Urine Squamous Epithelial Cells Few <5 /hpf Urine Bacteria Many H None Seen /hpf Urine Mucus Few None Seen Urine Glucose Normal Normal mg/dL White Blood Count 10.8 4.4-10.8 10^3/uL Red Blood Count 5.57 H 4.0-5.20 10^6/uL Hemoglobin 17.0 H 12.2-16.2 g/dL Hematocrit 49.6 H 36.0-46.0 % Mean Corpuscular Volume 89.1 80.0-100.0 fL Mean Corpuscular Hemoglobin 30.6 28.0-32.0 pg Mean Corpuscular Hemoglobin Concent 34.4 32.0-36.0 g/dL Red Cell Distribution Width 12.8 11.8-14.3 % Platelet Count 390 140-450 10^3/uL Mean Platelet Volume 7.9 6.9-10.8 fL Neutrophils (%) (Auto) 75.3 37.0-80.0 % Lymphocytes (%) (Auto) 16.5 10.0-50.0 % Monocytes (%) (Auto) 5.7 0.0-12.0 % Eosinophils (%) (Auto) 1.2 0.0-7.0 % Basophils (%) (Auto) 1.3 0.0-2.0 % Neutrophils # (Auto) 8.1 1.6-8.6 10 ^3/uL Lymphocytes # (Auto) 1.8 0.4-5.4 10 ^3/uL Monocytes # (Auto) 0.6 0-1.3 10 ^3/uL Eosinophils # (Auto) 0.1 0-0.8 10 ^3/uL Basophils # (Auto) 0.1 0-0.2 10 ^3/uL Nucleated Red Blood Cells 0.1 % Sodium Level 136 136-145 mmol/L Potassium Level 4.2 3.5-5.1 mmol/L Chloride Level 101 98-107 mmol/L Carbon Dioxide Level 29 20-31 mmol/L Anion Gap 6 5-15 Blood Urea Nitrogen 12 9-23 mg/dL Creatinine 0.92 0.550-1.02 mg/dL Glomerular Filtration Rate Calc 73 >90 mL/min BUN/Creatinine Ratio 13.0 10.0-20.0 Serum Glucose 170 H 74-106 mg/dL Calcium Level 11.2 H 8.7-10.4 mg/dL Total Bilirubin 0.8 0.2-1.0 mg/dL Aspartate Amino Transferase (AST) 24 13-40 U/L Alanine Aminotransferase (ALT) 32 7-40 U/L Alkaline Phosphatase 108 46-116 U/L Total Protein 7.8 5.7-8.2 g/dL Albumin 4.9 H 3.2-4.8 g/dL Lipase 34 12-53 U/L Primary Diagnosis Abdominal pain likely due to biliary colic possible GERD exacerbation Plan PPI for GERD Pain control Antiemetic Bowel regimen Monitor for pain IV fluids Full code Regular diet PPI for GI prophylaxis Lovenox for DVT prophylaxis Plan discussed with: Patient Problems List: (1) GERD (gastroesophageal reflux disease) (2) Intractable abdominal pain Status: Acute (3) Cholelithiasis Status: Acute Date of Service: Dec 20, 2024 Billing Provider: HARLEEN SOUZA MD Common Visit Codes: [id number] INP/OBS CARE (MOD) HARLEEN SOUZA MD Dec 20, 2024 17:39
[2024-12-20] MEDS ORDERED: ACETAMINOPHEN 325 MG TAB PO PRN (18:45)
[2024-12-20] MEDS ORDERED: HYDROcodone-ACET 5/325MG TAB PO PRN (18:45)
[2024-12-20] MEDS ORDERED: ONDANSETRON HCL 4 MG/2 ML VIAL IV PRN (18:45)
[2024-12-20] MEDS ORDERED: DOCUSATE SOD 100 MG CAP PO PRN (18:45)
[2024-12-20] MEDS: SODIUM CHLOR 0.9% PF (SALINE LOCK) 10ML VIAL/SYR IV SCH (22:00)
[2024-12-20 22:05] VITALS: BP 148/82; PULSE 88; RESP 14; TEMP 98.3; O2SAT 96
[2024-12-21 00:54] VITALS: BP 117/69; PULSE 82; RESP 13; TEMP 97.8; O2SAT 96
[2024-12-21] MEDS: LACTATED RINGER'S 1,000 ML IV ONE (02:21)
[2024-12-21 04:55] VITALS: BP 116/60; PULSE 84; RESP 14; TEMP 98; O2SAT 95
[2024-12-21 08:00] VITALS: PULSE 51; PULSE 76; RESP 18; O2SAT 98
[2024-12-21 09:00] VITALS: BP 90/57; PULSE 84; RESP 20; TEMP 98.3; O2SAT 93
[2024-12-21] MEDS: PANTOPRAZOLE 40 MG TAB PO SCH (09:12)
[2024-12-21] MEDS: ENOXAPARIN SOD 40 MG/0.4 ML SYRINGE SC SCH (09:12)
[2024-12-21] MEDS ORDERED: PANT40TA2 PO (11:30)
--- NOTE | 2024-12-21 11:34 | DVHDS2 ---
Discharge Summary Date of Admission Dec 20, 2024 at 18:39 Date of Discharge: Dec 21, 2024 Admitting Diagnosis Abdominal pain secondary to GERD Labs/Diagnostic Data: Laboratory Results Test 12/20/24 12:35 12/20/24 11:35 Urine Color Yellow (Yellow) Urine Clarity Turbid (Clear) Urine pH 6.5 (5.0-9.0) Urine Specific [place] 1.025 (1.001-1.035) Urine Protein Negative (Negative) Urine Ketones Negative (Negative) Urine Blood Negative /uL (Negative) Urine Nitrite Negative (Negative) Urine Bilirubin Negative (Negative) Urine Urobilinogen Normal mg/dL (Negative) Urine Leukocyte Esterase Negative /uL (Negative) Urine RBC 3 /hpf (0 - 4) Urine Microscopic WBC 2 /HPF (0-5) Urine Squamous Epithelial Cells Few /hpf (<5) Urine Bacteria Many /hpf (None Seen) Urine Mucus Few (None Seen) Urine Glucose Normal mg/dL (Normal) White Blood Count 10.8 10^3/uL (4.4-10.8) Red Blood Count 5.57 10^6/uL (4.0-5.20) Hemoglobin 17.0 g/dL (12.2-16.2) Hematocrit 49.6 % (36.0-46.0) Mean Corpuscular Volume 89.1 fL (80.0-100.0) Mean Corpuscular Hemoglobin 30.6 pg (28.0-32.0) Mean Corpuscular Hemoglobin Concent 34.4 g/dL (32.0-36.0) Red Cell Distribution Width 12.8 % (11.8-14.3) Platelet Count 390 10^3/uL (140-450) Mean Platelet Volume 7.9 fL (6.9-10.8) Neutrophils (%) (Auto) 75.3 % (37.0-80.0) Lymphocytes (%) (Auto) 16.5 % (10.0-50.0) Monocytes (%) (Auto) 5.7 % (0.0-12.0) Eosinophils (%) (Auto) 1.2 % (0.0-7.0) Basophils (%) (Auto) 1.3 % (0.0-2.0) Neutrophils # (Auto) 8.1 10 ^3/uL (1.6-8.6) Lymphocytes # (Auto) 1.8 10 ^3/uL (0.4-5.4) Monocytes # (Auto) 0.6 10 ^3/uL (0-1.3) Eosinophils # (Auto) 0.1 10 ^3/uL (0-0.8) Basophils # (Auto) 0.1 10 ^3/uL (0-0.2) Nucleated Red Blood Cells 0.1 % Sodium Level 136 mmol/L (136-145) Potassium Level 4.2 mmol/L (3.5-5.1) Chloride Level 101 mmol/L (98-107) Carbon Dioxide Level 29 mmol/L (20-31) Anion Gap 6 (5-15) Blood Urea Nitrogen 12 mg/dL (9-23) Creatinine 0.92 mg/dL (0.550-1.02) Glomerular Filtration Rate Calc 73 mL/min (>90) BUN/Creatinine Ratio 13.0 (10.0-20.0) Serum Glucose 170 mg/dL (74-106) Calcium Level 11.2 mg/dL (8.7-10.4) Total Bilirubin 0.8 mg/dL (0.2-1.0) Aspartate Amino Transferase (AST) 24 U/L (13-40) Alanine Aminotransferase (ALT) 32 U/L (7-40) Alkaline Phosphatase 108 U/L (46-116) Total Protein 7.8 g/dL (5.7-8.2) Albumin 4.9 g/dL (3.2-4.8) Lipase 34 U/L (12-53) Other Laboratory Tests 12/20/24 11:35 Brief Hx & Hospital Course: History of Present Illness This is a 54-year-old female who comes in with chief complaint of abdominal pain. The patient states that the pain started approximately three days ago. The pain is associated with nausea but no vomiting or diarrhea. She states that the pain is burning in nature and is rated as a 6/10. She does have a history of gallstones but also states that she ran out of her Protonix and the pain feels somewhat similar to her GERD. The patient was able to ambulate into the emergency department's without any difficulty. Course of hospitalization: Patient was tolerating oral intake. Patient was started on PPI while in the hospital. She was agreeable to be discharged home and continue with Protonix 40 mg p.o. daily. She was instructed to follow up with the discharge Clinic in one week. Patient was also instructed to obtain a medical provider as well as insurance. Physical exam General: Alert and Oriented x3. No acute distress. Well-nourished. Obese Eyes: EOMI. Anicteric. HENT: Moist mucous membranes. Lungs: Clear to auscultation bilaterally. No accessory muscle use. Cardiovascular: Regular rate and rhythm. No murmur. No JVD. Abdomen: Soft, non-tender and non-distended. No palpable masses. Extremities: No edema. Non-tender. Skin: No rashes or lesions. Warm. Neurologic: No focal neurological deficits. CN II-XII grossly intact, but not individually tested. Psychiatric: Cooperative. Appropriate mood and affect. Total time spent with patient discussing and formulating plan of care: 35 minutes. This medical document was created using an electronic medical record system with [employer] dictation system. Although this document has been carefully reviewed, there may still be some phonetic and typographical errors. These areas are purely typographical due to imperfections of the software programs, and do not reflect any compromise in the patient's medical care. Condition at Discharge: Fair Final Diagnosis/Problems List GERD Secondary Diagnosis: Morbid obesity Cholelithiasis Discharge Disposition: Home Discharge Instruct/Medications Diet: Regular Activity: No Restrictions, As Tolerated Follow Up/Referral: Follow up with discharge Clinic in one week Medications: Protonix 40 mg p.o. daily times 30 days 36 Discharge Statement: "Patient was advised to return to the ER or call 911 if any headaches, dizziness, shortness of breath, chest pain, abdominal pain, bleeding, fevers, or worsening of medical condition. Patient was counseled about treatment plan, medications, possible side effects, patientverbalized understanding. All questions were answered to the best of my ability. This discharge took greater then 30 minutes in planning, reviewing documentation, counseling the patient, and discussing with other team members." ASSESSMENT ASSESSMENT Assessment GERD Date of Service: Dec 21, 2024 Billing Provider: CORINA MORELAND NP Common Visit Codes: 03536-MAN/OBS DISCH DAY >30min CORINA MORELAND NP Dec 21, 2024 11:34
[2024-12-21 13:00] VITALS: BP 124/80; PULSE 77; RESP 19; TEMP 98.2; O2SAT 94
== END 2024-12-21 15:35 | disposition home or self-care (01) | DRG 243 ==
LOC: ER 10:38 → OVERFLOW 18:39 → WEST WING 22:00
PROVIDERS: ADMIT Internal Medicine; ATTEND Internal Medicine
DX: K21.9 Gastro-esophageal reflux disease without esophagitis (principal); K80.70 Calculus of gallbladder and bile duct without cholecystitis without obstruction; E66.01 Morbid (severe) obesity due to excess calories; Z68.41 Body mass index [BMI] 40.0-44.9, adult; Z80.9 Family history of malignant neoplasm, unspecified; Z82.49 Family history of ischemic heart disease and other diseases of the circulatory system; Z88.1 Allergy status to other antibiotic agents; Z88.8 Allergy status to other drugs, medicaments and biological substances; Z90.710 Acquired absence of both cervix and uterus; Z90.49 Acquired absence of other specified parts of digestive tract; Z82.5 Family history of asthma and other chronic lower respiratory diseases; Z83.42 Family history of familial hypercholesterolemia; Z83.3 Family history of diabetes mellitus
CPT/HCPCS: 36415; 76705; 80053; 81001; 83690; 85025; 96374; 96375; G0378; J2405; J2470

== ENCOUNTER 2025-01-31 08:19 | Emergency (ER) | payer SELFPAY ==
[~2025-01-31] VITALS: Ht 160 cm; Wt 111.7 kg
[~2025-01-31 08:19] MED LIST changes: -ALBU108A5 IN; -AUG875T PO; -CIPR-173 PO; -IBUP-1455 PO; -IBUP-1456 PO; -LEVO500T91 PO; -MET500T PO; -NAPR-746 PO; -PRED20TA2 PO; -ZOFR4T PO
[2025-01-31 08:53] VITALS: BP 142/71; TEMP 98.3
--- NOTE | 2025-01-31 09:02 | ED.PDOC ---
SOB-HPI HPI Comments A 54 YEAR OLD FEMALE PRESENTS TO THE ED WITH COMPLAINT OF FLU-LIKE SYMPTOMS. PATIENT STATES SHE HAS BEEN EXPERIENCING A COUGH, CONGESTION, LEFT EAR PAIN, BODY ACHES, AND A SORE THROAT FOR THE PAST 3 DAYS. PATIENT DENIES FEVER, CHILLS, SHORTNESS OF BREATH, CHEST PAIN, ABDOMINAL PAIN, NAUSEA, VOMITING, HEADACHE, OR OTHER COMPLAINTS. NO OTHER SYMPTOMS OR MODIFYING FACTORS AT THIS TIME. PATIENT IS ALERT, ORIENTED X 4, AND HAS STEADY GAIT. Chief Complaint: Cough Time Seen by MD: 08:28 Primary Care Provider: NONE Reviewed notes: Nurses Notes, Medications, Allergies Information Source: Patient Mode of Arrival: Ambulatory Severity: Moderate Timing: Days Duration: Since onset, Days Context: Spontaneous Onset PE Risk Factors: None History of: Recent URI Prehospital treatment: None Modifying Factors: Nothing Associated Signs and Symptoms: Cough, Nasal Congestion, Sore Throat If cough with SOB: Productive Past Medical History PAST MEDICAL HISTORY: Gallstones, GERD, Thyroid Surgical History: Appendectomy, , Hysterectomy PIPE LINE REPAIRER History: No Pertinent PIPE LINE REPAIRER History Family History Family History: Reviewed,noncontributory to illness, Family hx of DM, Family hx of Cancer, Family hx of HTN Social History Smoker: Non-Smoker Alcohol: Denies ETOH Use Drugs: Denies Drug Use Lives In: Home Constitutional: denies: chills, diaphoresis, fatigue, fever, malaise, sweats, weakness, others EENTM: reports: ear pain, nose congestion, throat pain, throat swelling; denies: blurred vision, double vision, ear bleeding, ear discharge, ear drainage, ear ringing, eye pain, eye redness, hearing loss, mouth pain, mouth swelling, nasal discharge, nose bleeding, nose pain, photophobia, tearing, voice changes, others Respiratory: reports: cough; denies: hemoptysis, orthopnea, SOB at rest, shortness of breath, SOB with excertion, stridor, wheezing, others Cardiovascular: denies: chest pain, dizzy spells, diaphoresis, Dyspnea on exertion, edema, irregular heart beat, left arm pain, lightheadedness, palpitations, PND, syncope, others Gastrointestinal: denies: abdomen distended, abdominal pain, blood streaked bowels, constipated, diarrhea, dysphagia, difficulty swallowing, hematemesis, melena, nausea, poor appetite, poor fluid intake, rectal bleeding, rectal pain, vomiting, others Genitourinary: denies: abnormal vagina bleeding, burning, dyspareunia, dysuria, flank pain, frequency, hematuria, incontinence, pain, , vagina discharge, urgency, others Neurological: denies: dizziness, fainting, headache, left sided numbness, left sided weakness, numbness, paresthesia, pre-existing deficit, right sided numbness, right sided weakness, seizure, speech problems, tingling, tremors, weakness, others Musculoskeletal: reports: muscle pain; denies: back pain, gout, joint pain, joint swelling, muscle stiffness, neck pain, others Integumetry: denies: bruises, change in color, change in hair/nails, dryness, laceration, lesions, lumps, rash, wounds, others Allergic/Immunocompromised: denies: Difficulty Healing, Frequent Infections, Hives, Itching, others Hematologic/Lymphatic: denies: anemia, blood clots, easy bleeding, easy b ruising, swollen glands, others Endocrine: denies: excessive hunger, excessive sweating, excessive thirst, excessive urination, flushing, intolerance to cold, intolerance to heat, unexplained weight gain, unexplained weight loss, others Psychiatric: denies: anxiety, bipolar disorder, depression, hopeless, panic disorder, schizophrenia, sleepless, suicidal, others All Other Systems: Reviewed and Negative Physical Exam General Appearance: No Apparent Distress, Normal, Obese HEENT: PERRL/EOMI, Pharyngeal Erythema (VESICLE PHARYNX WITH MILD SWELLING, ERYTHEMA AND SWELLING ON UVULA, NO EXUDATES. ), TMs Normal Neck: Full Range of Motion, Non-Tender, Normal, Normal Inspection Respiratory: Chest Non-Tender, Expiration, No Accessory Muscle Use, No Respiratory Distress, Rhonchi Cardiovascular: No Edema, No JVD, No Murmur, No Gallop, Normal Peripheral Pulses, Regular Rate/Rhythm Breast Exam: Deferred Gastrointestinal: No Organomegaly, Non Tender, No Pulsatile Mass, Normal Bowel Sounds, Soft Genitalia: Deferred Pelvic: Deferred Rectal: Deferred Extremities: No calf tenderness, Normal capillary refill, Normal inspection, Normal range of motion, Non-tender, No pedal edema Musculoskeletal : Apperance: Normal Neurologic: Alert, cyber intel planner II-XII nml as Tested, No Motor Deficits, Normal Affect, Normal Mood, No Sensory Deficits Cerebellar Function: Normal Reflexes: Normal Skin: Dry, Normal Color, Warm Peripheral Pulses: 2+ carotid (R), 2+ carotid (L) Lymphatic: No Adenopathy Was a procedure done? Was a procedure done?: No Differential Dx Differential Diagnosis: Bronchitis, Pneumonia, Sinusitis, Allergic Rhinitis, Otitis Media, Pharyngitis, URI X-Ray, Labs, Meds, VS Vital Signs Date Time Temp Pulse Resp B/P (MAP) Pulse Ox O2 Delivery O2 Flow Rate FiO2 01/31/25 09:20 100 16 97 01/31/25 08:53 98.3 120 20 142/71 (94) 95 98.3 01/31/25 08:53 120 20 95 Room Air 01/31/25 08:33 98.3 120 20 142/71 (94) 95 01/31/25 08:33 20 95 Room Air* 0 21 Current Medications Medications (Trade) Dose Ordered Sig/Charisse Route Start Time Stop Time Status Last Admin Ceftriaxone Sodium (Rocephin) 1,000 mg ONCE ONCE IM 01/31/25 09:00 01/31/25 09:01 DC 01/31/25 09:21 XY CHEST PORTABLE, HISTORY: cough COMPARISON: None None TECHNICAL DATA: 1 view of the chest was obtained. FINDINGS: Lines and tubes: None Cardiomediastinal silhouette: normal Pulmonary vasculature: normal Lung expansion: normal Lung airspace: normal Lung interstitium: normal Pleura: normal Pneumothorax: no Bones: Unremarkable Other: no IMPRESSION: No acute intrathoracic abnormality. ATED BY: PRASAD WARD MD DICTATED DATE/TIME: 01/31/25909 SIGNED BY: PRASAD WARD MD SIGNED DATE/TIME: 01/31/25909 CC: X-Ray, Labs, Meds, VS Comment EXTERNAL MEDICAL RECORDS REVIEWED: [NONE] INDEPENDENT HISTORIANS: [NONE] SOCIAL DETERMINANTS OF HEALTH: [NONE] LABS ORDERED: NONE REVIEWED AND INTERPRETED RESULTS: NONE IMAGING ORDERED: XR CHEST TREATMENTS ORDERED: ROCEPHIN 1 G IM PROCEDURES PERFORMED: NONE CRITICAL CARE TIME: NONE I HAVE DISCUSSED THE PATIENT WITH THE ATTENDING PHYSICIAN DR. STEINER AND HE AGREES WITH THE PATIENT'S PLAN OF CARE AND DISPOSITION. BASED ON HISTORY OF PRESENT ILLNESS, AND PHYSICAL EXAM, PATIENT WILL BE DISCHARGED HOME. DISCUSSED PLAN FOR DISCHARGE HOME WITH RX [KEFLEX AND PREDNISONE]. MEDICATION WARNINGS GIVEN. SHARED DECISION MAKING: PATIENT INSTRUCTED TO FOLLOW UP WITH PRIMARY CARE PROVIDER IN 1-2 DAYS FOR RE-EVALUATION OF SYMPTOMS. PATIENT VERBALIZES UNDERSTANDING TO RETURN TO ED FOR NEW OR WORSENING SYMPTOMS OR IF FOLLOW UP WITH PCP CANNOT BE OBTAINED. PATIENT FEELS COMFORTABLE GOING HOME AT THIS TIME. ALL QUESTIONS ADDRESSED AT TIME OF DISCHARGE. Images Reviewed?: Images reviewed and evaluated by me Time of 1ST Reevaluation: 09:31 Reevaluation 1ST: Improved Patient Education/Counseling: Diagnosis, Treatment, Need For Follow Up Family Education/Counseling: Diagnosis, Treatment, Need For Follow Up Medical Screening: No EMC Exist At This Time Departure 1 Departure Time of Disposition: 09:40 Impression: Primary Impression: Acute bronchitis Qualified Codes: J20.9 - Acute bronchitis, unspecified Additional Impression: Uvulitis Disposition: 01 HOME / SELF CARE / HOMELESS Condition: Stable Additional Instructions: FOLLOW-UP WITH PCP IN 1 TO 2 DAYS. TAKE MEDICATIONS PRESCRIBED. RETURN TO ED FOR ANY NEW OR WORSENING SYMPTOMS. e-Prescriptions Prednisone (Prednisone) 20 Mg Tab 60 MG PO QAM, #15 TAB Prov: GÓMEZ ARTEAGA 01/31/25 Promethazine-Dm (Promethazine Dm 6.25-15 mg/5Ml) 1 [place] 5 ML PO TID, #160 ML Prov: GÓMEZ ARTEAGA 01/31/25 Cephalexin Monohydrate (Cephalexin) 500 Mg Cap 1 CAP PO QID, #32 CAP Prov: GÓMEZ ARTEAGA 01/31/25 Discharged With: Self Critical Care Note Critical Care Time?: No Stability Stability form required: No Heart Score Heart Score: Heart Score Response (Comments) Value History N/A 0 EKG N/A 0 Age N/A 0 Risk Factors N/A 0 Troponin N/A 0 Total 0 I personally scribed for GÓMEZ ARTEAGA ([email or web address]) on 01/31/25 at 09:02. Electronically submitted by Holland Garcia ([email or web address]). I personally scribed for GÓMEZ ARTEAGA ([email or web address]) on 01/31/25 at 09:17. Electronically submitted by Holland Garcia ([email or web address]). GÓMEZ ARTEAGA Jan 31, 2025 09:02
--- NOTE | 2025-01-31 09:13 | DVH ---
XY CHEST PORTABLE, HISTORY: cough COMPARISON: None None TECHNICAL DATA: 1 view of the chest was obtained. FINDINGS: Lines and tubes: None Cardiomediastinal silhouette: normal Pulmonary vasculature: normal Lung expansion: normal Lung airspace: normal Lung interstitium: normal Pleura: normal Pneumothorax: no Bones: Unremarkable Other: no IMPRESSION: No acute intrathoracic abnormality.
[2025-01-31 09:20] VITALS: PULSE 100; RESP 16; O2SAT 97
[2025-01-31] MEDS: cefTRIAXone SOD 1,000 MG VL IM ONE (09:21)
[2025-01-31] MEDS ORDERED: PRED20TA2 PO (09:35)
[2025-01-31] MEDS ORDERED: PROM1SOL4 PO (09:35)
[2025-01-31] MEDS ORDERED: CEPH500C PO (09:35)
== END 2025-01-31 09:44 | disposition home or self-care (01) ==
LOC: ER 08:19
DX: J20.9 Acute bronchitis, unspecified (principal); K12.2 Cellulitis and abscess of mouth; Z90.710 Acquired absence of both cervix and uterus; Z90.49 Acquired absence of other specified parts of digestive tract
CPT/HCPCS: 71045; 96372; 99283; J0696

== ENCOUNTER 2025-02-05 13:17 | Emergency (ER) | payer SELFPAY ==
[~2025-02-05] VITALS: Ht 160 cm; Wt 112.3 kg
[~2025-02-05 13:17] MED LIST changes: +CEPH500C PO; +PRED20TA2 PO; +PROM1SOL4 PO
--- NOTE | 2025-02-05 13:52 | DVH ---
EXAM: XY CHEST XRAY 1 VIEW Indication: Pain Technique: Single frontal view of the chest was obtained Comparison: XY CHEST PORTABLE on DOS: 01/31/25 FINDINGS: Lines and Tubes: None Lungs: No focal consolidation. Pleura: No effusion. No pneumothorax. Cardiomediastinal contours: Unremarkable Bones: No acute osseous abnormality. IMPRESSION: No acute cardiopulmonary disease.
[2025-02-05 14:22] VITALS: TEMP 97.9
[2025-02-05] MEDS ORDERED: AUG875T PO (14:47)
[2025-02-05] MEDS ORDERED: ALBU108A5 IN (14:47)
[2025-02-05] MEDS ORDERED: BENZ100C97 PO (14:47)
--- NOTE | 2025-02-05 14:47 | ED.PDOC ---
SOB-HPI HPI Comments This is a pleasant 54-year-old female that presents for a cough. Reports she was seen on Monday and was diagnosed with a bronchitis but continues to endorse a cough that waxes and wanes with no specific patterns and patient also complains of dyspnea with ambulation malaise myalgia. She was prescribed Keflex and prednisone with some improvement. Chief Complaint: Cough Time Seen by MD: 13:26 Primary Care Provider: NONE Mode of Arrival: Ambulatory Past Medical History PAST MEDICAL HISTORY: Gallstones, GERD, Thyroid Surgical History: Appendectomy, , Hysterectomy IMMUNOLOGIST History: No Pertinent IMMUNOLOGIST History Family History Family History: Reviewed,noncontributory to illness, Family hx of DM, Family hx of Cancer, Family hx of HTN Social History Smoker: Non-Smoker Alcohol: Denies ETOH Use Drugs: Denies Drug Use Lives In: Home X-Ray, Labs, Meds, VS Vital Signs Date Time Temp Pulse Resp B/P (MAP) Pulse Ox O2 Delivery O2 Flow Rate FiO2 02/05/25 14:22 105 24 94 Room Air 02/05/25 14:22 97.9 105 24 129/82 (98) 94 97.9 02/05/25 13:26 97.9 105 24 129/82 (98) 94 97.9 02/05/25 13:26 24 94 Room Air* 0 21 Departure 1 Departure Time of Disposition: 14:46 Impression: Primary Impression: Acute bronchitis Qualified Codes: J20.9 - Acute bronchitis, unspecified Disposition: 01 HOME / SELF CARE / HOMELESS Condition: Stable e-Prescriptions Amoxicillin & Pot Clavulanate (AUGMENTIN TABLET) 875 Mg Tb 875 MG PO BID for 7 Days, #14 TAB 0 Refills Prov: MELIZA JORGE SANDWICH BOARD CARRIER 02/05/25 Benzonatate (Benzonatate) 100 Mg Cap 1 CAP PO TID for 10 Days, #30 CAP 0 Refills Prov: MELIZA JORGE SANDWICH BOARD CARRIER 02/05/25 Albuterol Sulfate (Albuterol Sulfate Hfa) 108 Mcg/Act Aer 108 MCG IN Q6HP PRN for 30 Days, #1 AER 0 Refills Prov: MELIZA JORGE SANDWICH BOARD CARRIER 02/05/25 MELIZA JORGE SANDWICH BOARD CARRIER Feb 05, 2025 14:47
[2025-02-05 14:48] VITALS: BP 116/86; PULSE 86; RESP 19; O2SAT 95
== END 2025-02-05 14:52 | disposition home or self-care (01) ==
LOC: ER 13:17
DX: J20.9 Acute bronchitis, unspecified (principal); K21.9 Gastro-esophageal reflux disease without esophagitis; E03.9 Hypothyroidism, unspecified; Z90.49 Acquired absence of other specified parts of digestive tract; Z98.890 Other specified postprocedural states; Z90.710 Acquired absence of both cervix and uterus
CPT/HCPCS: 71045

== ENCOUNTER 2025-03-01 20:31 | Inpatient (IN) | payer MEDICAID ==
[~2025-03-01] VITALS: Ht 160 cm; Wt 112.5 kg
[~2025-03-01 20:31] MED LIST changes: +ALBU108A5 IN; +AUG875T PO; +BENZ100C97 PO
[2025-03-01] MEDS ORDERED: HYDROcodone-ACET 10/325MG TAB PO ONE (21:00)
--- NOTE | 2025-03-01 21:29 | ED.PDOC ---
GI ASSESSMENT HPI Comments 54 y/o F presents with c/o RUQ abdominal pain and nausea for 2 days, today. Patient reports on progressively worsening symptoms following initial unprovoked onset. She comments on having similar pain the past with both gallstones and cholecystitis, with accompanying hospital visit and admission. She states, however, on never having her gallbladder taken out then. She denies any vomiting, diarrhea, constipation, fever, chills, or other associated symptoms or modifiers at this time. Patient was tachycardic at arrival. Chief Complaint: Abdominal Pain Time Seen by MD: 20:55 Primary Care Provider: NONE Reviewed Notes: Nurses Notes, Medications, Allergies Allergies: Coded Allergies: Azithromycin (Verified Allergy, Unknown, 02/14/22) Guaifenesin (Verified Allergy, Unknown, 02/14/22) Piperacillin (Verified Allergy, Unknown, 06/14/23) Pseudoephedrine (Verified Allergy, Unknown, 02/14/22) Tazobactam (Verified Allergy, Unknown, 06/14/23) Tetracycline (Verified Allergy, Unknown, 02/14/22) Home Meds Active Scripts Amoxicillin & Pot Clavulanate (AUGMENTIN TABLET) 875 Mg Tb, 875 MG PO BID for 7 Days, #14 TAB 0 Refills Prov:MELIZA JORGE DUMPSTER OPERATOR 02/05/25 Benzonatate (Benzonatate) 100 Mg Cap, 1 CAP PO TID for 10 Days, #30 CAP 0 Refills Prov:MELIZA JORGE DUMPSTER OPERATOR 02/05/25 Albuterol Sulfate (Albuterol Sulfate Hfa) 108 Mcg/Act Aer, 108 MCG IN Q6HP PRN for 30 Days, #1 AER 0 Refills Prov:MELIZA JORGE DUMPSTER OPERATOR 02/05/25 Prednisone (Prednisone) 20 Mg Tab, 60 MG PO QAM, #15 TAB Prov:GÓMEZ ARTEAGA 01/31/25 Promethazine-Dm (Promethazine Dm 6.25-15 mg/5Ml) 1 [place], 5 ML PO TID, #160 ML Prov:GÓMEZ ARTEAGA 01/31/25 Cephalexin Monohydrate (Cephalexin) 500 Mg Cap, 1 CAP PO QID, #32 CAP Prov:GÓMEZ ARTEAGA 01/31/25 Pantoprazole Sodium Sesquihydr (Protonix) 40 Mg Tab, 40 MG PO DAILY for 3 Days, #30 TAB 1 Refill Prov:CORINA MORELAND NP 12/21/24 Pantoprazole Sodium Sesquihydr (Protonix) 40 Mg Tab, 40 MG PO QAM, #30 TAB Prov:SHELLY FLYNN MD 06/16/23 Information Source: Patient Mode of Arrival: Ambulatory Timing: Days Duration: Since onset Prehospital treatment: Pain Meds Quality: Aching, Cramping, Sharp Severity: Moderate Recent: None Recent Hx of: Other (Cholelithiasis) Pain Location: RUQ Associated sign and symptoms: Nausea, Abdominal Pain Past Medical History PAST MEDICAL HISTORY: Gallstones, GERD, Thyroid Surgical History: Appendectomy, , Hysterectomy BLOCK TESTER History: No Pertinent BLOCK TESTER History Family History Family History: Reviewed,noncontributory to illness, Family hx of DM, Family hx of Cancer, Family hx of HTN Social History Smoker: Non-Smoker Alcohol: Denies ETOH Use Drugs: Denies Drug Use Lives In: Home Constitutional: denies: chills, diaphoresis, fatigue, fever, malaise, sweats, weakness, others EENTM: denies: blurred vision, double vision, ear bleeding, ear discharge, ear drainage, ear pain, ear ringing, eye pain, eye redness, hearing loss, mouth pain, mouth swelling, nasal discharge, nose bleeding, nose congestion, nose pain, photophobia, tearing, throat pain, throat swelling, voice changes, others Respiratory: denies: cough, hemoptysis, orthopnea, SOB at rest, shortness of breath, SOB with excertion, stridor, wheezing, others Cardiovascular: denies: chest pain, dizzy spells, diaphoresis, Dyspnea on exertion, edema, irregular heart beat, left arm pain, lightheadedness, palpitations, PND, syncope, others Gastrointestinal: reports: abdominal pain, nausea; denies: abdomen distended, blood streaked bowels, constipated, diarrhea, dysphagia, difficulty swallowing, hematemesis, melena, poor appetite, poor fluid intake, rectal bleeding, rectal pain, vomiting, others Genitourinary: denies: abnormal vagina bleeding, burning, dyspareunia, dysuria, flank pain, frequency, hematuria, incontinence, pain, , vagina discharge, urgency, others Neurological: denies: dizziness, fainting, headache, left sided numbness, left sided weakness, numbness, paresthesia, pre-existing deficit, right sided numbness, right sided weakness, seizure, speech problems, tingling, tremors, weakness, others Musculoskeletal: denies: back pain, gout, joint pain, joint swelling, muscle pain, muscle stiffness, neck pain, others Integumetry: denies: bruises, change in color, change in hair/nails, dryness, laceration, lesions, lumps, rash, wounds, others Allergic/Immunocompromised: denies: Difficulty Healing, Frequent Infections, Hives, Itching, others Hematologic/Lymphatic: denies: anemia, blood clots, easy bleeding, easy bruising, swollen glands, others Endocrine: denies: excessive hunger, excessive sweating, excessive thirst, excessive urination, flushing, intolerance to cold, intolerance to heat, unexplained weight gain, unexplained weight loss, others Psychiatric: denies: anxiety, bipolar disorder, depression, hopeless, panic disorder, schizophrenia, sleepless, suicidal, others All Other Systems: Reviewed and Negative (as per HPI) Physical Exam General Appearance: Moderate Distress (Due to right upper quadrant pain concerns.), Obese HEENT: Normal ENT Inspection, Pharynx Normal, TMs Normal Neck: Full Range of Motion, Non-Tender, Normal, Normal Inspection Respiratory: Chest Non-Tender, Lungs Clear, No Accessory Muscle Use, No Respiratory Distress, Normal Breath Sounds Cardiovascular: No Edema, No JVD, No Murmur, No Gallop, Normal Peripheral Pulses, Regular Rate/Rhythm Breast Exam: Deferred Gastrointestinal: Other (Diffuse epigastric and right upper quadrant pain with positive Tuttle's on evaluation. Difficult to assess due to body habitus. No pulsatile masses.) Genitalia: Deferred Pelvic: Deferred Rectal: Deferred Extremities: No calf tenderness, Normal capillary refill, Normal inspection, Normal range of motion, Non-tender, No pedal edema Neurologic: Alert, No Motor Deficits, Normal Affect, Normal Mood, No Sensory Deficits Cerebellar Function: Normal Reflexes: Normal Skin: Dry, Normal Color, Warm Lymphatic: No Adenopathy Was a procedure done? Was a procedure done?: No GI differential Dx Differential Diagnosis: Cholangitis, Cholecystitis, Gastritis/PUD, Gastroenteritis, UTI, Food Poisoning, Bacterial, Viral, Other (cholelithiasis ) X-Ray, Labs, Meds, VS Vital Signs Date Time Temp Pulse Resp B/P (MAP) Pulse Ox O2 Delivery O2 Flow Rate FiO2 03/01/25 20:58 98.1 135 16 133/75 (94) 96 98.1 Lab Test 03/01/25 22:35 03/01/25 21:27 Range/Units Urine Color Light-orange Yellow Urine Clarity Turbid H Clear Urine pH 5.5 5.0-9.0 Urine Specific [place] 1.030 1.001-1.035 Urine Protein Trace H Negative Urine Ketones Negative Negative Urine Blood Negative Negative /uL Urine Nitrite Negative Negative Urine Bilirubin Negative Negative Urine Urobilinogen Normal Negative mg/dL Urine Leukocyte Esterase Negative Negative /uL Urine RBC 3 0 - 4 /hpf Urine Microscopic WBC 5 0-5 /HPF Urine Squamous Epithelial Cells Mod <5 /hpf Urine Bacteria Many H None Seen /hpf Urine Mucus Few None Seen Urine Glucose Trace Normal mg/dL White Blood Count 15.7 H 4.4-10.8 10^3/uL Red Blood Count 5.42 H 4.0-5.20 10^6/uL Hemoglobin 15.9 12.2-16.2 g/dL Hematocrit 48.0 H 36.0-46.0 % Mean Corpuscular Volume 88.7 80.0-100.0 fL Mean Corpuscular Hemoglobin 29.4 28.0-32.0 pg Mean Corpuscular Hemoglobin Concent 33.2 32.0-36.0 g/dL Red Cell Distribution Width 13.3 11.8-14.3 % Platelet Count 370 140-450 10^3/uL Mean Platelet Volume 8.0 6.9-10.8 fL Neutrophils (%) (Auto) 77.4 37.0-80.0 % Lymphocytes (%) (Auto) 12.0 10.0-50.0 % Monocytes (%) (Auto) 8.5 0.0-12.0 % Eosinophils (%) (Auto) 1.7 0.0-7.0 % Basophils (%) (Auto) 0.4 0.0-2.0 % Neutrophils # (Auto) 12.2 H 1.6-8.6 10 ^3/uL Lymphocytes # (Auto) 1.9 0.4-5.4 10 ^3/uL Monocytes # (Auto) 1.3 0-1.3 10 ^3/uL Eosinophils # (Auto) 0.3 0-0.8 10 ^3/uL Basophils # (Auto) 0.1 0-0.2 10 ^3/uL Nucleated Red Blood Cells 0.1 % Sodium Level 134 L 136-145 mmol/L Potassium Level 3.7 3.5-5.1 mmol/L Chloride Level 101 98-107 mmol/L Carbon Dioxide Level 23 20-31 mmol/L Anion Gap 10 5-15 Blood Urea Nitrogen 7 L 9-23 mg/dL Creatinine 0.78 0.550-1.02 mg/dL Glomerular Filtration Rate Calc 89 >90 mL/min BUN/Creatinine Ratio 9.0 L 10.0-20.0 Serum Glucose 180 H 74-106 mg/dL Calcium Level 10.0 8.7-10.4 mg/dL Total Bilirubin 1.3 H 0.2-1.0 mg/dL Aspartate Amino Transferase (AST) 16 13-40 U/L Alanine Aminotransferase (ALT) 28 7-40 U/L Alkaline Phosphatase 105 46-116 U/L Total Protein 7.8 5.7-8.2 g/dL Albumin 4.9 H 3.2-4.8 g/dL Lipase 37 12-53 U/L X-Ray, Labs, Meds, VS Comment All studies performed the ED were evaluated by me personally. Laboratories were remarkable for a leukocytosis. Ultrasound of the right upper quadrant revealed a cholelithiasis with a positive ultrasound Tuttle sign consistent with a an acute cholecystitis. Additional findings of hepatic steatosis noted. Patient will be admitted for surgical evaluation. Empiric antibiotics have been started. Time of 1ST Reevaluation: 23:24 Reevaluation 1ST: Improved Consultation: PCP, Surgery Patient Education/Counseling: Diagnosis, Treatment Family Education/Counseling: Diagnosis, Treatment, No Family Present Departure 1 Departure Time of Disposition: 23:24 Impression: Primary Impression: Cholecystitis Disposition: 09 ADMITTED INPATIENT Condition: Fair Discharged With: Self Critical Care Note Critical Care Time?: No Stability Stability form required: No Heart Score Heart Score: Heart Score Response (Comments) Value History N/A 0 EKG N/A 0 Age N/A 0 Risk Factors N/A 0 Troponin N/A 0 Total 0 I personally scribed for JAKE ZABALA PAC ([email or web address]) on 03/01/25 at 21:28. Electronically submitted by Andrei Mitchell ([email or web address]). JAKE ZABALA [facility] Mar 01, 2025 21:28
[2025-03-01 21:55] LABS: Basophils # (auto) 0.1 10 ^3/uL (0-0.2); Basophils % (auto) 0.4 % (0.0-2.0); Eosinophils # (auto) 0.3 10 ^3/uL (0-0.8); Eosinophils % (auto) 1.7 % (0.0-7.0); Hemoglobin 15.9 g/dL (12.2-16.2); Lymphocytes # (auto) 1.9 10 ^3/uL (0.4-5.4); Mean Corpuscular Hemoglobin 29.4 pg (28.0-32.0); Mean Corpuscular Hgb Conc. 33.2 g/dL (32.0-36.0); Mean Corpuscular Volume 88.7 fL (80.0-100.0); Monocytes # (auto) 1.3 10 ^3/uL (0-1.3); Monocytes % (auto) 8.5 % (0.0-12.0); Neutrophils # (auto) 12.2 10 ^3/uL (1.6-8.6); Neutrophils % (auto) 77.4 % (37.0-80.0); Nucleated Red Blood Cells % 0.1 %; Platelet Count (auto) 370 10^3/uL (140-450); Red Blood Cells 5.42 10^6/uL (4.0-5.20); Red Cell Distribution Width 13.3 % (11.8-14.3); White Blood Cell 15.7 10^3/uL (4.4-10.8)
[2025-03-01 22:12] LABS: Alanine Aminotransferase 28 U/L (7-40); Alkaline Phosphatase 105 U/L (46-116); Anion Gap 10 (5-15); Aspartate Aminotransferase 16 U/L (13-40); Carbon Dioxide 23 mmol/L (20-31); Chloride 101 mmol/L (98-107); Lipase 37 U/L (12-53); Potassium 3.7 mmol/L (3.5-5.1); Total Protein 7.8 g/dL (5.7-8.2)
[2025-03-01 22:13] LABS: Albumin 4.9 g/dL (3.2-4.8); Bilirubin, Total 1.3 mg/dL (0.2-1.0); Blood Urea Nitrogen 7 mg/dL (9-23); Glucose 180 mg/dL (74-106); Sodium 134 mmol/L (136-145)
--- NOTE | 2025-03-01 22:17 | DVH ---
INDICATION: Right upper quadrant pain TECHNIQUE: Multiple real-time sonographic images of a limited abdomen study. COMPARISON: US GALLBLADDER on DOS: 12/20/24, US GALLBLADDER on DOS: 06/18/23, US GALLBLADDER on DOS: FINDINGS: Parenchymal changes suggestive of steatosis. The liver measures 18 cm. No intrahepatic donna iary ductal dilatation is noted. The gallbladder wall measures 0.18 cm and is unremarkable. Mobile gallstones no sludge. The common duct measures 0.54 cm and is unremarkable. No pericholecystic fluid is noted. The right kidney measures 9.9 cm. No hydronephrosis. The pancreas is normal IMPRESSION: 1. Cholelithiasis with positive ultrasound Tuttle's sign consistent with acute cholecystitis 2. 18 cm liver with findings consistent with steatosis HS:Y
[2025-03-01 23:02] LABS: Urine Bacteria MANY /hpf (None Seen); Urine Blood Negative /uL (Negative); Urine Clarity Turbid (Clear); Urine Color Light-Orange (Yellow); Urine Mucus FEW (None Seen); Urine Protein, UAD TRACE (Negative); Urine Squamous Epithelial Cell MOD /hpf (<5); Urine Urobilinogen Normal (Negative); Urine WBC 5 /HPF (0-5); Urine pH 5.5 (5.0-9.0)
[2025-03-01] MEDS ORDERED: PIPERACILLIN-TAZOB 3.375GM 100 ML IV ONE (23:30)
[2025-03-01] MEDS ORDERED: SODIUM CHLORIDE 0.9% 1,000 ML IV ONE (23:30)
[2025-03-01] MEDS: ONDANSETRON HCL 4 MG/2 ML VIAL IV ONE (23:57)
[2025-03-02] MEDS: PANTOPRAZOLE 40 MG/10 ML VIAL INJ IV ONE
[2025-03-02] MEDS: HYDROMORPHONE HCL 1 MG/ML INJ IV ONE (00:02)
[2025-03-02] MEDS: SODIUM CHLORIDE 0.9% 1,000 ML IV ONE (00:15)
[2025-03-02] MEDS ORDERED: MORPHINE SULFATE INJ 2 MG/ml SYRG IV PRN (00:15)
--- NOTE | 2025-03-02 00:40 | DVH ---
CHEST RADIOGRAPH Indication: preop Technique: Single frontal view of the chest was obtained COMPARISON: XY CHEST XRAY 1 VIEW on DOS: 02/05/25, XY CHEST PORTABLE on DOS: 01/31/25 FINDINGS: Lines and Tubes: None Lungs: Clear Pleura: No effusion. No pneumothorax. Cardiomediastinal contours: Unremarkable Bones: Unremarkable IMPRESSION: No abnormality demonstrated.
[2025-03-02 00:56] LABS: INR 1.11 (0.9-1.15); Partial Thromboplastin Time 32.3 SEC (24.5-34.5); Prothrombin Time 11.6 sec (9.3-11.8)
[2025-03-02 01:31] VITALS: BP 104/63; PULSE 98; RESP 17; TEMP 97.3; O2SAT 91
--- NOTE | 2025-03-02 02:20 | DVHHP2 ---
History of Present Illness Reason for Visit: Abdominal pain History of Present Illness 54-year-old female presents for evaluation of abdominal pain. Patient endorses right upper quadrant abdominal pain that has been ongoing for the past two days. The patient states symptoms have become worse over the past one day. No nausea or vomiting. She does report a history of gallstones and was told she would need surgery yet she has not been able to follow up with a surgeon as an outpatient. Past Medical History Hypothyroid, GERD, gallstones Past Surgical History , hysterectomy, appendectomy Family History Noncontributory Smoke: No ALCOHOL: none Drugs: None Lives: with Family Review of Systems Review of Systems Review of systems are currently negative otherwise addressed in HPI. Allergies: Coded Allergies: Azithromycin (Verified Allergy, Unknown, 02/14/22) Guaifenesin (Verified Allergy, Unknown, 02/14/22) Piperacillin (Verified Allergy, Unknown, 06/14/23) Pseudoephedrine (Verified Allergy, Unknown, 02/14/22) Tazobactam (Verified Allergy, Unknown, 06/14/23) Tetracycline (Verified Allergy, Unknown, 02/14/22) Medications Current Medications Medications Dose Ordered Sig/Charisse Route Start Time Stop Time Status Last Admin Dose Admin Pantoprazole Sodium 40 mg DAILY IV 03/02/25 10:00 Piperacillin Sod/ Tazobactam Sod 100 ml @ 25 mls/hr Q8HR IV 03/02/25 06:00 UNV Levofloxacin/ Dextrose 100 ml @ 100 mls/hr DAILY IV 03/02/25 10:00 Metronidazole 100 ml @ 100 mls/hr Q8HR IV 03/02/25 06:00 Ondansetron HCl 4 mg Q4HP PRN IV 03/02/25 00:15 Morphine Sulfate 2 mg Q4HPRN PRN IV 03/02/25 00:15 Exam Vital Signs Vital Signs Date Time Temp Pulse Resp B/P (MAP) Pulse Ox O2 Delivery O2 Flow Rate FiO2 03/02/25 01:31 98 17 91 Room Air* 0 21 03/02/25 01:31 97.3 104/63 (77) 97.3 Exam Gen: 54-year-old female in mild distress Skin: Warm, dry, normal color and texture, no rash. HEENT: Normocephalic atraumatic, mucous membranes moist and pink. Neck: Cervical and supraclavicular nodes normal without enlargement, trachea is midline, thyroid gland is normal without masses. Pulmonary: Clear to auscultation and percussion bilaterally. Cardiac: Regular rate and rhythm. No murmur Abdomen: Soft, right upper quadrant tenderness, nondistended, bowel sounds present all 4 quadrants, no guarding, no rigidity, no organomegaly. Extremities: No cyanosis, clubbing, no edema Neuro: Cranial nerves II through XII grossly intact, normal affect and speech, no focal motor deficits. Labs/Xrays ORDERING PHYSICIAN: JAKE ZABALA PAC PROCEDURE(s): ABDL - ABDOMEN LIMITED REASON: Right upper quadrant pain ORDER NUMBER(s): [id number], ACCESSION NUMBER(s): [id number] INDICATION: Right upper quadrant pain TECHNIQUE: Multiple real-time sonographic images of a limited abdomen study. COMPARISON: US GALLBLADDER on DOS: 12/20/24, US GALLBLADDER on DOS: 06/18/23, US GALLBLADDER on DOS: 06/14/23 FINDINGS: Parenchymal changes suggestive of steatosis. The liver measures 18 cm. No intrahepatic biliary ductal dilatation is noted. The gallbladder wall measures 0.18 cm and is unremarkable. Mobile gallstones n o sludge. The common duct measures 0.54 cm and is unremarkable. No pericholecystic fluid is noted. The right kidney measures 9.9 cm. No hydronephrosis. The pancreas is normal IMPRESSION: 1. Cholelithiasis with positive ultrasound Tuttle's sign consistent with acute cholecystitis 2. 18 cm liver with findings consistent with steatosis HS:Y RING PHYSICIAN: BRANDY BURNS PROCEDURE(s): CXR1 - CHEST XRAY 1 VIEW REASON: preop ORDER NUMBER(s): [id number], ACCESSION NUMBER(s): [id number] CHEST RADIOGRAPH Indication: preop Technique: Single frontal view of the chest was obtained COMPARISON: XY CHEST XRAY 1 VIEW on DOS: 02/05/25, XY CHEST PORTABLE on DOS: 01/31/25 FINDINGS: Lines and Tubes: None Lungs: Clear Pleura: No effusion. No pneumothorax. Cardiomediastinal contours: Unremarkable Bones: Unremarkable IMPRESSION: No abnormality demonstrated. Labs Test 03/02/25 00:22 03/01/25 22:35 03/01/25 21:27 Range/Units Prothrombin Time 11.6 9.3-11.8 sec Prothrombin Time INR 1.11 0.9-1.15 Activated Partial Thromboplast Time 32.3 24.5-34.5 SEC Urine Color Light-orange Yellow Urine Clarity Turbid H Clear Urine pH 5.5 5.0-9.0 Urine Specific [place] 1.030 1.001-1.035 Urine Protein Trace H Negative Urine Ketones Negative Negative Urine Blood Negative Negative /uL Urine Nitrite Negative Negative Urine Bilirubin Negative Negative Urine Urobilinogen Normal Negative mg/dL Urine Leukocyte Esterase Negative Negative /uL Urine RBC 3 0 - 4 /hpf Urine Microscopic WBC 5 0-5 /HPF Urine Squamous Epithelial Cells Mod <5 /hpf Urine Bacteria Many H None Seen /hpf Urine Mucus Few None Seen Urine Glucose Trace Normal mg/dL White Blood Count 15.7 H 4.4-10.8 10^3/uL Red Blood Count 5.42 H 4.0-5.20 10^6/uL Hemoglobin 15.9 12.2-16.2 g/dL Hematocrit 48.0 H 36.0-46.0 % Mean Corpuscular Volume 88.7 80.0-100.0 fL Mean Corpuscular Hemoglobin 29.4 28.0-32.0 pg Mean Corpuscular Hemoglobin Concent 33.2 32.0-36.0 g/dL Red Cell Distribution Width 13.3 11.8-14.3 % Platelet Count 370 140-450 10^3/uL Mean Platelet Volume 8.0 6.9-10.8 fL Neutrophils (%) (Auto) 77.4 37.0-80.0 % Lymphocytes (%) (Auto) 12.0 10.0-50.0 % Monocytes (%) (Auto) 8.5 0.0-12.0 % Eosinophils (%) (Auto) 1.7 0.0-7.0 % Basophils (%) (Auto) 0.4 0.0-2.0 % Neutrophils # (Auto) 12.2 H 1.6-8.6 10 ^3/uL Lymphocytes # (Auto) 1.9 0.4-5.4 10 ^3/uL Monocytes # (Auto) 1.3 0-1.3 10 ^3/uL Eosinophils # (Auto) 0.3 0-0.8 10 ^3/uL Basophils # (Auto) 0.1 0-0.2 10 ^3/uL Nucleated Red Blood Cells 0.1 % Sodium Level 134 L 136-145 mmol/L Potassium Level 3.7 3.5-5.1 mmol/L Chloride Level 101 98-107 mmol/L Carbon Dioxide Level 23 20-31 mmol/L Anion Gap 10 5-15 Blood Urea Nitrogen 7 L 9-23 mg/dL Creatinine 0.78 0.550-1.02 mg/dL Glomerular Filtration Rate Calc 89 >90 mL/min BUN/Creatinine Ratio 9.0 L 10.0-20.0 Serum Glucose 180 H 74-106 mg/dL Calcium Level 10.0 8.7-10.4 mg/dL Total Bilirubin 1.3 H 0.2-1.0 mg/dL Aspartate Amino Transferase (AST) 16 13-40 U/L Alanine Aminotransferase (ALT) 28 7-40 U/L Alkaline Phosphatase 105 46-116 U/L Total Protein 7.8 5.7-8.2 g/dL Albumin 4.9 H 3.2-4.8 g/dL Lipase 37 12-53 U/L Assessment/Plan Assessment/Plan Assessment Acute cholecystitis Leukocytosis Admit the patient to [facility] to the hospitalist Surgical consultation Zosyn NPO Maintenance IV fluids Pain management Continue treatment per orders. Plan discussed with: Patient My Orders Orders - BRANDY BURNS AGACNFely Procedure Category Date Status Time Admit ADMIT 03/01/25 Transmitted 23:58 Pantoprazole PHA 03/02/25 In Process (Protonix) 10:00 * Surgical Consult CONS 03/02/25 Transmitted Piperacillin-Tazob PHA 03/02/25 Pending 3.375gm (Zosyn 3.375g 06:00 Levofloxacin 500mg PHA 03/02/25 In Process (Levaquin 500mg/ 100m 10:00 Metronidazole PHA 03/02/25 In Process 500mg/100ml (Flagyl 06:00 Sodium Chloride 0.9% PHA 03/02/25 In Process 00:15 Chest Xray 1 View XY 03/02/25 Resulted 00:05 Admit ADMIT 03/02/25 Transmitted 00:05 Ondansetron Hcl PHA 03/02/25 In Process (Zofran) 00:15 Complete Blood Count LAB 03/03/25 Verified 04:00 Comprehensive LAB 03/03/25 Verified Metabolic Panel 04:00 Npo (Nothing By DIET 03/02/25 Transmitted Mouth) Diet Breakfast Condition: Stable YVETTE 03/02/25 In Process 00:05 Bedrest With Bathroom YVETTE 03/02/25 In Process Privileg 00:05 Morphine Sulfate PHA 03/02/25 In Process Injection 00:15 Date of Service: Mar 02, 2025 Billing Provider: BRANDY BURNS Common Visit Codes: [id number] INP/OBS CARE (HIGH) BRANDY BURNS Mar 02, 2025 02:20
[2025-03-02] MEDS ORDERED: PIPERACILLIN-TAZOB 3.375GM 100 ML IV SCH (06:00)
[2025-03-02] MEDS: metroNIDAZOLE 500MG/100ML 100 ML IV SCH (06:12)
[2025-03-02 08:00] VITALS: BP 100/65; PULSE 73; RESP 16; TEMP 97.7; O2SAT 95
[2025-03-02] MEDS: levoFLOXacin 500MG 100 ML IV SCH (10:30)
[2025-03-02] MEDS: PANTOPRAZOLE 40 MG/10 ML VIAL INJ IV SCH (10:31)
[2025-03-02] MEDS ORDERED: DULO60CA41 PO (11:47)
[2025-03-02] MEDS ORDERED: LORA-1121 PO (11:47)
[2025-03-02] MEDS ORDERED: CLON0.1T PO (11:47)
[2025-03-02] MEDS ORDERED: HYDR-4902 PO (11:47)
[2025-03-02] MEDS ORDERED: TRAZ-184 PO (11:47)
[2025-03-02] MEDS ORDERED: LEVO-848 PO (11:47)
[2025-03-02] MEDS ORDERED: PREG75CA PO (11:47)
[2025-03-02] MEDS ORDERED: HYDR25TA5 GT (11:47)
[2025-03-02] MEDS ORDERED: AML5T PO (11:47)
[2025-03-02] MEDS ORDERED: CHOL20007 PO (11:47)
[2025-03-02 12:00] VITALS: BP 111/70; PULSE 82; RESP 16; TEMP 97.4; O2SAT 96
[2025-03-02] MEDS ORDERED: levoFLOXacin 500MG 100 ML IV SCH (13:00)
[2025-03-02] MEDS: KETOROLAC TROMETH 30 MG/ML 1ML VIAL IV PRN (15:44)
[2025-03-02 15:52] VITALS: BP 102/63; PULSE 77; RESP 18; TEMP 98.1; O2SAT 95
[2025-03-02 20:00] VITALS: BP 119/64; PULSE 80; TEMP 98.1; O2SAT 96
[2025-03-03] VITALS (7 sets, daily range): BP systolic 105–136; BP diastolic 67–78; PULSE 62–97; RESP 15–20; TEMP 98–98.4; O2SAT 93–97
[2025-03-03 07:02] LABS: Basophils # (auto) 0.1 10 ^3/uL (0-0.2); Basophils % (auto) 0.7 % (0.0-2.0); Eosinophils # (auto) 0.4 10 ^3/uL (0-0.8); Eosinophils % (auto) 3.8 % (0.0-7.0); Hematocrit 44.3 % (36.0-46.0); Hemoglobin 15.1 g/dL (12.2-16.2); Lymphocytes # (auto) 1.1 10 ^3/uL (0.4-5.4); Lymphocytes % (auto) 12.3 % (10.0-50.0); Mean Corpuscular Hemoglobin 30.5 pg (28.0-32.0); Mean Corpuscular Hgb Conc. 34.1 g/dL (32.0-36.0); Mean Corpuscular Volume 89.3 fL (80.0-100.0); Monocytes # (auto) 0.9 10 ^3/uL (0-1.3); Monocytes % (auto) 9.6 % (0.0-12.0); Neutrophils # (auto) 6.8 10 ^3/uL (1.6-8.6); Neutrophils % (auto) 73.6 % (37.0-80.0); Platelet Count (auto) 314 10^3/uL (140-450); Red Blood Cells 4.97 10^6/uL (4.0-5.20); Red Cell Distribution Width 13.5 % (11.8-14.3); White Blood Cell 9.3 10^3/uL (4.4-10.8)
[2025-03-03 07:26] LABS: Alanine Aminotransferase 21 U/L (7-40); Albumin 4.5 g/dL (3.2-4.8); Alkaline Phosphatase 88 U/L (46-116); Anion Gap 11 (5-15); Aspartate Aminotransferase 17 U/L (13-40); BUN/Creatinine Ratio 12.7 (10.0-20.0); Bilirubin, Total 0.8 mg/dL (0.2-1.0); Blood Urea Nitrogen 10 mg/dL (9-23); Calcium 10.2 mg/dL (8.7-10.4); Carbon Dioxide 24 mmol/L (20-31); Chloride 101 mmol/L (98-107); Glucose 120 mg/dL (74-106); Sodium 136 mmol/L (136-145); Total Protein 7.3 g/dL (5.7-8.2)
--- NOTE | 2025-03-03 12:49 | DVHPN2 ---
Reviewed: Care Plan, H&P Changes from previous H/P or p: No Changes General: Per HPI Objective Vitals Vital Signs Date Time Temp Pulse Resp B/P (MAP) Pulse Ox O2 Delivery O2 Flow Rate FiO2 03/03/25 09:51 98.1 97 20 136/74 (94) 94 98.1 03/02/25 01:31 Room Air* 0 21 Intake/Output Intake and Output 03/03/25 07:00 Intake Total 300 ml Balance 300 ml IV Total 300 ml # Voids 1 Medications Current Medications Medications Dose Ordered Sig/Charisse Route Start Time Stop Time Status Last Admin Dose Admin Pantoprazole Sodium 40 mg DAILY IV 03/02/25 10:00 03/03/25 09:26 40 MG Levofloxacin/ Dextrose 100 ml @ 100 mls/hr DAILY IV 03/02/25 10:00 03/03/25 09:26 100 MLS/HR Metronidazole 100 ml @ 100 mls/hr Q8HR IV 03/02/25 06:00 03/03/25 05:31 100 MLS/HR Ondansetron HCl 4 mg Q4HP PRN IV 03/02/25 00:15 Morphine Sulfate 2 mg Q4HPRN PRN IV 03/02/25 00:15 Ketorolac Tromethamine 30 mg Q6HPRN PRN IV 03/02/25 13:45 03/07/25 13:45 03/03/25 10:08 30 MG Laboratory Results Laboratory Tests 03/03/25 06:11 Chemistry Test 03/03/25 06:11 Albumin 4.5 g/dL (3.2-4.8) Calcium Level 10.2 mg/dL (8.7-10.4) Total Protein 7.3 g/dL (5.7-8.2) LFT Test 03/03/25 06:11 Alanine Aminotransferase (ALT) 21 U/L (7-40) Alkaline Phosphatase 88 U/L (46-116) Aspartate Amino Transferase (AST) 17 U/L (13-40) Total Bilirubin 0.8 mg/dL (0.2-1.0) Urinalysis Test 03/01/25 22:35 Urine Color Light-orange (Yellow) Urine Clarity Turbid (Clear) H Urine pH 5.5 (5.0-9.0) Urine Specific [place] 1.030 (1.001-1.035) Urine Protein Trace (Negative) H Urine Ketones Negative (Negative) Urine Blood Negative /uL (Negative) Urine Nitrite Negative (Negative) Urine Bilirubin Negative (Negative) Urine Urobilinogen Normal mg/dL (Negative) Urine Leukocyte Esterase Negative /uL (Negative) Urine RBC 3 /hpf (0 - 4) Urine Microscopic WBC 5 /HPF (0-5) Urine Squamous Epithelial Cells Mod /hpf (<5) Urine Bacteria Many /hpf (None Seen) H Urine Mucus Few (None Seen) Urine Glucose Trace mg/dL (Normal) Assessment/Plan Assessment/Plan Acute cholecystitis Leukocytosis overweight Admit the patient to [facility] to the hospitalist Surgical consultation Zosyn NPO Maintenance IV fluids Pain management Continue treatment per orders pt to be evaluated by Gen Surg for cholecystectomy Plan discussed with: Patient Date of Service: Mar 03, 2025 Billing Provider: BETHANY CARVAJAL DO Common Visit Codes: [id number] INP/OBS CARE(HIGH) BETHANY CARVAJAL DO Mar 03, 2025 12:49
[2025-03-03] MEDS: ONDANSETRON HCL 4 MG/2 ML VIAL IV PRN (13:31)
[2025-03-04] VITALS (7 sets, daily range): BP systolic 103–130; BP diastolic 44–88; PULSE 77–97; RESP 15–18; TEMP 97.8–98.7; O2SAT 91–96
[2025-03-04] MEDS: diphenhdrAMINE HCL 50 MG/1 ML VL IV PRN (11:32)
--- NOTE | 2025-03-04 15:11 | DVHPN2 ---
Reviewed: Care Plan, H&P, Labs, Medications, Previous Orders Changes from previous H/P or p: No Changes General: Per HPI Objective Vitals Vital Signs Date Time Temp Pulse Resp B/P (MAP) Pulse Ox O2 Delivery O2 Flow Rate FiO2 03/04/25 13:00 98.7 79 18 106/50 (68) 93 98.7 03/04/25 08:00 Room Air* 0 21 Intake/Output Intake and Output 03/04/25 07:00 Intake Total 200 ml Output Total 400 ml Balance -200 ml Intake Oral 0 ml IV Total 200 ml Output Urine Total 400 ml # Voids 1 Medications Current Medications Medications Dose Ordered Sig/Charisse Route Start Time Stop Time Status Last Admin Dose Admin Pantoprazole Sodium 40 mg DAILY IV 03/02/25 10:00 03/04/25 09:48 40 MG Levofloxacin/ Dextrose 100 ml @ 100 mls/hr DAILY IV 03/02/25 10:00 03/04/25 09:47 100 MLS/HR Metronidazole 100 ml @ 100 mls/hr Q8HR IV 03/02/25 06:00 03/04/25 14:09 100 MLS/HR Ondansetron HCl 4 mg Q4HP PRN IV 03/02/25 00:15 03/03/25 13:31 4 MG Morphine Sulfate 2 mg Q4HPRN PRN IV 03/02/25 00:15 Ketorolac Tromethamine 30 mg Q6HPRN PRN IV 03/02/25 13:45 03/07/25 13:45 03/03/25 10:08 30 MG Diphenhydramine HCl 50 mg Q6HR PRN IV 03/04/25 11:30 03/04/25 11:32 50 MG Laboratory Results Laboratory Tests 03/03/25 06:11 Urinalysis Test 03/01/25 22:35 Urine Color Light-orange (Yellow) Urine Clarity Turbid (Clear) H Urine pH 5.5 (5.0-9.0) Urine Specific [place] 1.030 (1.001-1.035) Urine Protein Trace (Negative) H Urine Ketones Negative (Negative) Urine Blood Negative /uL (Negative) Urine Nitrite Negative (Negative) Urine Bilirubin Negative (Negative) Urine Urobilinogen Normal mg/dL (Negative) Urine Leukocyte Esterase Negative /uL (Negative) Urine RBC 3 /hpf (0 - 4) Urine Microscopic WBC 5 /HPF (0-5) Urine Squamous Epithelial Cells Mod /hpf (<5) Urine Bacteria Many /hpf (None Seen) H Urine Mucus Few (None Seen) Urine Glucose Trace mg/dL (Normal) Assessment/Plan Assessment/Plan Acute cholecystitis Leukocytosis overweight Admit the patient to [facility] to the hospitalist Surgical consultation Zosyn NPO Maintenance IV fluids Pain management Continue treatment per orders 03/03/2025 pt to be evaluated by Gen Surg for cholecystectomy 03/04/2025 pt is likely to have surgery within 24 hours Plan discussed with: Patient My Orders Orders - BETHANY CARVAJAL DO Procedure Category Date Status Time Diphenhdramine PHA 03/04/25 In Process Injection (Benadryl 11:30 Date of Service: Mar 04, 2025 Billing Provider: BETHANY CARVAJAL DO Common Visit Codes: [id number] INP/OBS CARE(HIGH) BETHANY CARVAJAL DO Mar 04, 2025 15:11
--- NOTE | 2025-03-04 20:47 | DVHINCON2 ---
SURGICAL CONSULTATION HISTORY OF PRESENT ILLNESS: The patient is a 54-year-old female, who was admitted with abdominal pain. The patient's symptoms were right upper quadrant abdominal discomfort ongoing for several days. The patient had no nausea or vomiting accompanying the pain. She has a known history of gallstones, and she was told in the past that she needs to have an operation and to follow up with a surgeon as an outpatient. PAST MEDICAL HISTORY: Significant for hypothyroidism, gastroesophageal reflux disease, and the known diagnosis of gallstones. PAST SURGICAL HISTORY: * Several C-sections. * Hysterectomy and appendectomy, which was followed by intraperitoneal infection, for which she received a percutaneous drainage. SOCIAL HISTORY: The patient is a nonsmoker, nondrinker, uses no illicit drugs. ALLERGIES: The patient has no indicated allergies. REVIEW OF SYSTEMS: As outlined in the presenting symptoms with no additional information that is pertinent to the current diagnosis. PHYSICAL EXAMINATION: GENERAL: Reveals a well-developed, well-nourished female, in no acute distress. HEENT: Pupils are equal and reactive. Sclerae nonicteric. Extraocular motion is intact. Uvula midline. Trachea midline. Carotids are full without bruits. Jugular veins are collapsed. HEART: Regular rate and rhythm without murmur or gallop. ABDOMEN: Obese. Tender in the right upper quadrant. No guarding. No rigidity. No organomegaly is noted. There is CVA tenderness. EXTREMITIES: Without cyanosis, clubbing, or edema. No peripheral vascular insufficiency. LABORATORY DATA: The patient's laboratory evaluation included a CBC, which on admission showed a white count of 15.7, which has normalized by now to 9.3. The patient's H and H are stable and normal with 15.1 grams of hemoglobin and hematocrit of 44.3, and the platelet count is normal at 314. The patient's chemistry, she has got a normal chemistry with slightly elevated bilirubin on admission, which has normalized since then. The patient's INR is 1.1 and PT is 11.6. On imaging, the patient underwent a chest x-ray, which shows no evidence of acute illness; and a single organ ultrasound of the gallbladder, which shows cholelithiasis consistent with acute cholecystitis secondary to the ultrasonic Tuttle sign. Liver is consistent with steatosis. DIAGNOSES: Cholelithiasis, biliary colic, possibly chronic cholecystitis. The patient is thoroughly informed of potential risks and complications of her illness, alternative treatments as well as laparoscopic, possibly open cholecystectomy. Therefore, the risks and potential complications of cholecystectomy were all explained in a detailed fashion. MD ROZ Curry/TERE TID: [id number] RECEIPT: [id number]
[2025-03-05] VITALS (8 sets, daily range): BP systolic 94–140; BP diastolic 48–73; PULSE 51–98; RESP 17–20; TEMP 97.2–98; O2SAT 91–99
[2025-03-05] MEDS: D5W/SOD CHL 0.45%/KCL 20MEQ 1,000 ML IV SCH (03:40)
[2025-03-05] MEDS: ceFAZolin 2 GM/D5W50ml 50 ML IV ONE (09:28)
[2025-03-05] MEDS ORDERED: fentaNYL CITRATE 100 MCG/2 ML VL ONE ×3 (09:41→10:55)
[2025-03-05] MEDS: SUCCINYLCHOLINE CHLORIDE 20 MG/ML 10ML VIAL IV ONE (09:43)
[2025-03-05] MEDS ORDERED: DexAMETHasone SOD PHOS 10MG/1ML VIAL INJ ONE (10:02)
[2025-03-05] MEDS ORDERED: ONDANSETRON HCL 4 MG/2 ML VIAL ONE (10:02)
[2025-03-05] MEDS ORDERED: diphenhdrAMINE HCL 50 MG/1 ML VL ONE (10:02)
[2025-03-05] MEDS ORDERED: ROCURONIUM 10MG/ML 10ML VIAL IV ONE (10:08)
[2025-03-05] MEDS: LIDOCAINE W/ EPINEPHRINE 1% 20ML VIAL ONE (10:50)
[2025-03-05] MEDS: BUPIVACAINE 0.5% MPF INJ 30ML SDV IJ ONE (10:50)
[2025-03-05] MEDS ORDERED: SUGAMMADEX 200mg/2ml Vial (100MG/ML) IV ONE (10:52)
--- NOTE | 2025-03-05 11:11 | DVHOP ---
DATE OF SURGERY: 03/05/2025 PREOPERATIVE DIAGNOSES: * Cholelithiasis. * Cholecystitis. POSTOPERATIVE DIAGNOSES: * Cholelithiasis. * Cholecystitis. SURGEON: Jack Nair MD EQUIPMENT OPERATOR/LABORER/SUPERVISOR: Van He NP ANESTHESIA: General endotracheal, Dr. Burciaga. PROCEDURES: * Laparoscopy. * Laparoscopic cholecystectomy. DESCRIPTION OF PROCEDURE: Under general endotracheal anesthesia with the patient's skin prepped and draped, supraumbilical incision was made and Veress needle inserted by the hanging drop technique. Following distention of the abdomen to 15 mmHg pressure by insufflation with carbon dioxide, the needle was removed and replaced with a 5 mm trocar port through which a 0-degree viewing laparoscope was inserted and under direct vision additional 5 and 10 mm ports inserted through the abdominal wall in the right anterior axillary line at the level of the umbilicus and subxiphoid skin medially. Instrumentation was introduced and laparoscopy was performed revealing huge amount of adipose tissue surrounding all the viscera. There was no obvious unexpected pathology encountered. The gallbladder was placed on tension. The cystic duct and cystic artery were meticulously dissected. Great deal of attention was paid to the hepatocystic triangle so as to minimize the potential for inadvertent injury to the common bile duct. This was exceedingly difficult due to the patient's adiposity. Subsequent to division of the cystic duct and cystic artery, the gallbladder was resected from its liver bed by electrocautery and traction. The fully mobilized gallbladder was then retrieved from the peritoneal cavity. Right upper quadrant was profusely irrigated. Irrigant was aspirated. Hemostasis was meticulously assured. Instrumentation was withdrawn. Pneumoperitoneum was evacuated. Fascial defect closed using 0 Vicryl. Wounds approximated using Monocryl sutures, Dermabond glue, and Steri-Strips. The patient remained stable throughout the procedure. Left the operating room following an accurate needle and sponge count. MD ROZ Curry/JEREMIAH TID: [id number] RECEIPT: [id number]
[2025-03-05] MEDS: ONDANSETRON HCL 4 MG/2 ML VIAL IV ONE (11:30)
[2025-03-05] MEDS ORDERED: MEPERIDINE HCL (25 MG/ML) 1ML VIAL IV PRN (11:30)
[2025-03-05] MEDS ORDERED: HYDROmorphone HCL 2 MG/ML VL/or syr IV PRN (11:30)
[2025-03-05] MEDS: ACETAMINOPHEN IV 1000 MG/100ML (10MG/ML) IV PRN (11:55)
[2025-03-05] MEDS: HYDROmorphone HCL 2 MG/ML VL/or syr IV ONE (12:35)
--- NOTE | 2025-03-05 13:15 | DVHPN2 ---
Reviewed: Care Plan, H&P, Labs, Medications, Previous Orders Changes from previous H/P or p: No Changes General: Per HPI Objective Vitals Vital Signs Date Time Temp Pulse Resp B/P (MAP) Pulse Ox O2 Delivery O2 Flow Rate FiO2 03/05/25 09:00 97.2 82 17 129/61 (83) 91 97.2 03/05/25 08:00 Room Air* 0 21 Intake/Output Intake and Output 03/05/25 07:00 Intake Total 2470 ml Output Total 700 ml Balance 1770 ml Intake Oral 2140 ml IV Total 330 ml Output Urine Total 700 ml # Voids 3 Medications Current Medications Medications Dose Ordered Sig/Charisse Route Start Time Stop Time Status Last Admin Dose Admin Pantoprazole Sodium 40 mg DAILY IV 03/02/25 10:00 03/05/25 08:34 40 MG Levofloxacin/ Dextrose 100 ml @ 100 mls/hr DAILY IV 03/02/25 10:00 03/04/25 09:47 100 MLS/HR Metronidazole 100 ml @ 100 mls/hr Q8HR IV 03/02/25 06:00 03/05/25 05:34 100 MLS/HR Ondansetron HCl 4 mg Q4HP PRN IV 03/02/25 00:15 03/05/25 05:51 4 MG Morphine Sulfate 2 mg Q4HPRN PRN IV 03/02/25 00:15 Ketorolac Tromethamine 30 mg Q6HPRN PRN IV 03/02/25 13:45 03/07/25 13:45 03/04/25 18:09 30 MG Diphenhydramine HCl 50 mg Q6HR PRN IV 03/04/25 11:30 03/04/25 11:32 50 MG Potassium Chloride/Dextrose/ Sod Cl 1,000 ml @ 120 mls/hr Q8H20M IV 03/05/25 11:00 Laboratory Results Laboratory Tests 03/03/25 06:11 Urinalysis Test 03/01/25 22:35 Urine Color Light-orange (Yellow) Urine Clarity Turbid (Clear) H Urine pH 5.5 (5.0-9.0) Urine Specific [place] 1.030 (1.001-1.035) Urine Protein Trace (Negative) H Urine Ketones Negative (Negative) Urine Blood Negative /uL (Negative) Urine Nitrite Negative (Negative) Urine Bilirubin Negative (Negative) Urine Urobilinogen Normal mg/dL (Negative) Urine Leukocyte Esterase Negative /uL (Negative) Urine RBC 3 /hpf (0 - 4) Urine Microscopic WBC 5 /HPF (0-5) Urine Squamous Epithelial Cells Mod /hpf (<5) Urine Bacteria Many /hpf (None Seen) H Urine Mucus Few (None Seen) Urine Glucose Trace mg/dL (Normal) Assessment/Plan Assessment/Plan Acute cholecystitis Leukocytosis overweight Admit the patient to [facility] to the hospitalist Surgical consultation Zosyn NPO Maintenance IV fluids Pain management Continue treatment per orders 03/03/2025 pt to be evaluated by Gen Surg for cholecystectomy 03/04/2025 pt is likely to have surgery within 24 hours 03/05/2025: undergoing lap dixon today Plan discussed with: Patient My Orders Orders - BETHANY CARVAJAL DO Procedure Category Date Status Time Fentanyl Citrate PHA 03/05/25 In Process Injection 09:41 Date of Service: Mar 05, 2025 Billing Provider: BETHANY CARVAJAL DO Common Visit Codes: [id number] INP/OBS CARE(HIGH) BETHANY CARVAJAL DO Mar 05, 2025 13:15
[2025-03-05] MEDS ORDERED: DOCU-94 PO (13:17)
[2025-03-05] MEDS ORDERED: CEPH250C PO (13:17)
[2025-03-05] MEDS: HYDROcodone-ACET 10/325MG TAB PO ONE (14:50)
[2025-03-06 05:00] VITALS: BP 101/41; PULSE 70; RESP 18; TEMP 97.4; O2SAT 92
[2025-03-06 06:51] LABS: Basophils # (auto) 0 10 ^3/uL (0-0.2); Basophils % (auto) 0.3 % (0.0-2.0); Eosinophils # (auto) 0 10 ^3/uL (0-0.8); Eosinophils % (auto) 0.1 % (0.0-7.0); Hematocrit 43.1 % (36.0-46.0); Hemoglobin 14.1 g/dL (12.2-16.2); Lymphocytes # (auto) 1.3 10 ^3/uL (0.4-5.4); Lymphocytes % (auto) 9.2 % (10.0-50.0); Mean Corpuscular Hemoglobin 28.9 pg (28.0-32.0); Mean Corpuscular Hgb Conc. 32.7 g/dL (32.0-36.0); Mean Corpuscular Volume 88.3 fL (80.0-100.0); Monocytes # (auto) 1.1 10 ^3/uL (0-1.3); Monocytes % (auto) 7.7 % (0.0-12.0); Neutrophils # (auto) 11.3 10 ^3/uL (1.6-8.6); Neutrophils % (auto) 82.7 % (37.0-80.0); Nucleated Red Blood Cells % 0.1 %; Platelet Count (auto) 414 10^3/uL (140-450); Red Blood Cells 4.88 10^6/uL (4.0-5.20); Red Cell Distribution Width 13.1 % (11.8-14.3); White Blood Cell 13.6 10^3/uL (4.4-10.8)
[2025-03-06 08:00] VITALS: PULSE 65; RESP 16; O2SAT 94
[2025-03-06 08:44] VITALS: BP 102/44; PULSE 65; RESP 16; TEMP 97.7; O2SAT 94
--- NOTE | 2025-03-06 10:49 | DVHPN2 ---
Progress Note Date Seen: Mar 06, 2025 Medical Necessity Reason Pt with a Central, PICC or Fol: No Objective vital signs Vital Sign Date Time Temp Pulse Resp B/P (MAP) Pulse Ox O2 Delivery O2 Flow Rate FiO2 03/06/25 08:44 97.7 65 16 102/44 (63) 94 97.7 03/05/25 20:00 Room Air* 0 21 Total Intake and Output 03/05/25 03/05/25 03/06/25 14:59 22:59 06:59 Intake Total 100 ml 500 ml 920 ml Balance 100 ml 500 ml 920 ml medications Current Medications Medications Dose Ordered Sig/Charisse Route Start Time Stop Time Status Last Admin Dose Admin Pantoprazole Sodium 40 mg DAILY IV 03/02/25 10:00 03/06/25 10:43 40 MG Levofloxacin/ Dextrose 100 ml @ 100 mls/hr DAILY IV 03/02/25 10:00 03/04/25 09:47 100 MLS/HR Metronidazole 100 ml @ 100 mls/hr Q8HR IV 03/02/25 06:00 03/06/25 06:02 100 MLS/HR Ondansetron HCl 4 mg Q4HP PRN IV 03/02/25 00:15 03/05/25 13:57 4 MG Morphine Sulfate 2 mg Q4HPRN PRN IV 03/02/25 00:15 Ketorolac Tromethamine 30 mg Q6HPRN PRN IV 03/02/25 13:45 03/07/25 13:45 03/06/25 03:59 30 MG Diphenhydramine HCl 50 mg Q6HR PRN IV 03/04/25 11:30 03/04/25 11:32 50 MG Potassium Chloride/Dextrose/ Sod Cl 1,000 ml @ 120 mls/hr Q8H20M IV 03/05/25 11:00 03/06/25 02:24 120 MLS/HR laboratory and microbiology Laboratory Tests 03/06/25 05:51 03/03/25 06:11 Test 03/03/25 06:11 Range/Units Serum Glucose 120 H 74-106 mg/dL Problem List/Assessment/Plan Problem List/Assessment/Plan 03/06/25 FEELS MUCH BETTER, ABDOMEN APPROPRIATELY TENDER, WOUNDS CLEAN AND WELL APPROXIMATED, OK TO ADVANCE DIET, SHE IS CLEARED FOR DISCHARGE LABS REVIEWED,NORMAL. IF DISCHARGED TO RETURN TO SEE ME IN TWO WEEKS Plan discussed with: Patient, Spouse Dietary Evaluation Review Comments: 1. Recommend timely diet progression, pt not to go >7 days NPO/CL diet only 2. Will follow diet diet advancement, adequacy of PO intakes 3. Monitor/treat GI sx, currently no complaints of GI distress Expected Outcomes/Goals: Diet advancement, consume adequate oral intakes. GOGO VAUGHAN MD Mar 06, 2025 10:49
[2025-03-06 12:54] VITALS: BP 107/53; PULSE 71; RESP 16; TEMP 97.7; O2SAT 96
[2025-03-06] MEDS ORDERED: NAP500T PO ×2 (13:17→14:32)
[2025-03-06] MEDS ORDERED: ZOFR4T PO (13:18)
[2025-03-06] MEDS ORDERED: AML5T PO ×2 (13:18→14:32)
--- NOTE | 2025-03-06 13:20 | DVHDS2 ---
Discharge Summary Date of Admission Mar 01, 2025 at 23:58 Date of Discharge: Mar 06, 2025 Labs/Diagnostic Data: Laboratory Results Test 03/06/25 05:51 03/03/25 06:11 03/02/25 00:22 03/01/25 22:35 White Blood Count 13.6 10^3/uL (4.4-10.8) Red Blood Count 4.88 10^6/uL (4.0-5.20) Hemoglobin 14.1 g/dL (12.2-16.2) Hematocrit 43.1 % (36.0-46.0) Mean Corpuscular Volume 88.3 fL (80.0-100.0) Mean Corpuscular Hemoglobin 28.9 pg (28.0-32.0) Mean Corpuscular Hemoglobin Concent 32.7 g/dL (32.0-36.0) Red Cell Distribution Width 13.1 % (11.8-14.3) Platelet Count 414 10^3/uL (140-450) Mean Platelet Volume 7.9 fL (6.9-10.8) Neutrophils (%) (Auto) 82.7 % (37.0-80.0) Lymphocytes (%) (Auto) 9.2 % (10.0-50.0) Monocytes (%) (Auto) 7.7 % (0.0-12.0) Eosinophils (%) (Auto) 0.1 % (0.0-7.0) Basophils (%) (Auto) 0.3 % (0.0-2.0) Neutrophils # (Auto) 11.3 10 ^3/uL (1.6-8.6) Lymphocytes # (Auto) 1.3 10 ^3/uL (0.4-5.4) Monocytes # (Auto) 1.1 10 ^3/uL (0-1.3) Eosinophils # (Auto) 0 10 ^3/uL (0-0.8) Basophils # (Auto) 0 10 ^3/uL (0-0.2) Nucleated Red Blood Cells 0.1 % Total Bilirubin 0.4 mg/dL (0.2-1.0) Sodium Level 136 mmol/L (136-145) Potassium Level 4.0 mmol/L (3.5-5.1) Chloride Level 101 mmol/L (98-107) Carbon Dioxide Level 24 mmol/L (20-31) Anion Gap 11 (5-15) Blood Urea Nitrogen 10 mg/dL (9-23) Creatinine 0.79 mg/dL (0.550-1.02) Glomerular Filtration Rate Calc 88 mL/min (>90) BUN/Creatinine Ratio 12.7 (10.0-20.0) Serum Glucose 120 mg/dL (74-106) Calcium Level 10.2 mg/dL (8.7-10.4) Aspartate Amino Transferase (AST) 17 U/L (13-40) Alanine Aminotransferase (ALT) 21 U/L (7-40) Alkaline Phosphatase 88 U/L (46-116) Total Protein 7.3 g/dL (5.7-8.2) Albumin 4.5 g/dL (3.2-4.8) Prothrombin Time 11.6 sec (9.3-11.8) Prothrombin Time INR 1.11 (0.9-1.15) Activated Partial Thromboplast Time 32.3 SEC (24.5-34.5) Urine Color Light-orange (Yellow) Urine Clarity Turbid (Clear) Urine pH 5.5 (5.0-9.0) Urine Specific [place] 1.030 (1.001-1.035) Urine Protein Trace (Negative) Urine Ketones Negative (Negative) Urine Blood Negative /uL (Negative) Urine Nitrite Negative (Negative) Urine Bilirubin Negative (Negative) Urine Urobilinogen Normal mg/dL (Negative) Urine Leukocyte Esterase Negative /uL (Negative) Urine RBC 3 /hpf (0 - 4) Urine Microscopic WBC 5 /HPF (0-5) Urine Squamous Epithelial Cells Mod /hpf (<5) Urine Bacteria Many /hpf (None Seen) Urine Mucus Few (None Seen) Urine Glucose Trace mg/dL (Normal) Test 03/01/25 21:27 Lipase 37 U/L (12-53) Other Laboratory Tests 03/06/25 05:51 03/03/25 06:11 Brief Hx & Hospital Course: Acute cholecystitis Leukocytosis overweight Admit the patient to [facility] to the hospitalist Surgical consultation Zosyn NPO Maintenance IV fluids Pain management Continue treatment per orders 03/03/2025 pt to be evaluated by Gen Surg for cholecystectomy 03/04/2025 pt is likely to have surgery within 24 hours 03/05/2025: s/p lap dixon, improving 03/06/2025: discharged to home with meds Condition at Discharge: Good Final Diagnosis/Problems List see above Discharge Disposition: Home Discharge Instruct/Medications Diet: Cardiac 2g Na,low cholest Activity: No Restrictions, As Tolerated Discharge Statement: "Patient was advised to return to the ER or call 911 if any headaches, dizziness, shortness of breath, chest pain, abdominal pain, bleeding, fevers, or worsening of medical condition. Patient was counseled about treatment plan, medications, possible side effects, patientverbalized understanding. All questions were answered to the best of my ability. This discharge took greater then 30 minutes in planning, reviewing documentation, counseling the patient, and discussing with other team members." ASSESSMENT ASSESSMENT Assessment Date of Service: Mar 06, 2025 Billing Provider: BETHANY CARVAJAL DO Common Visit Codes: 20961-QCY/OBS DISCH DAY >30min BETHANY CARVAJAL DO Mar 06, 2025 13:20
[2025-03-06] MEDS ORDERED: PANT40TA2 PO ×2 (14:16→14:32)
== END 2025-03-06 16:49 | disposition home or self-care (01) | DRG 263 ==
LOC: ER 20:33 → OVERFLOW 23:58 → EAST 03-03 09:42
PROVIDERS: ADMIT Internal Medicine; ATTEND Internal Medicine
PROC: 0FT44ZZ Resection of Gallbladder, Percutaneous Endoscopic Approach (ICD-10-PCS; principal; 2025-03-05 09:54)
DX: K80.00 Calculus of gallbladder with acute cholecystitis without obstruction (principal); R65.10 Systemic inflammatory response syndrome (SIRS) of non-infectious origin without acute organ dysfunction; E03.9 Hypothyroidism, unspecified; E66.3 Overweight; K21.9 Gastro-esophageal reflux disease without esophagitis; Z88.0 Allergy status to penicillin; Z88.1 Allergy status to other antibiotic agents; Z88.8 Allergy status to other drugs, medicaments and biological substances; Z79.2 Long term (current) use of antibiotics; Z79.899 Other long term (current) drug therapy; Z98.891 History of uterine scar from previous surgery; Z90.710 Acquired absence of both cervix and uterus; Z68.41 Body mass index [BMI] 40.0-44.9, adult
CPT/HCPCS: 36415; 71045; 76705; 80053; 81001; 82247; 83690; 85025; 85610; 85730; 86850; 86900; 86901; 96374; G0378; J0131; J0330; J1100; J1885; J1956; J2405; J2470; J3490

== ENCOUNTER 2025-10-28 13:56 | Emergency (ER) | payer MEDICAID ==
[~2025-10-28] VITALS: Ht 160 cm; Wt 108.5 kg
[~2025-10-28 13:56] MED LIST changes: +AML5T PO; +CEPH250C PO; +CHOL20007 PO; +DOCU-94 PO; +NAP500T PO; +ZOFR4T PO
[2025-10-28] MEDS ORDERED: DOXY-286 PO (15:14)
[2025-10-28] MEDS ORDERED: ERY05OO OP (15:14)
--- NOTE | 2025-10-28 15:14 | ED.PDOC ---
SOB-HPI HPI Comments 55 year old female presented with flu-like symptoms that have persisted for approximately five days, with additional concerns of ear and nasal symptoms, possible conjunctivitis, and an ear infection. The patient presented with flu- like symptoms for about five days, which progressed to include ear and nose symptoms. The patient reported a feeling of fluid in the ears, oozing from the ears at night, and waking up with discharge in the eyes. The patient expressed concern about possibly having conjunctivitis. There was mention of a possible sinus infection. The patient also reported a history of wheezing, but no chest pain, hemoptysis, shortness of breath, or abdominal pain. The patient reported being allergic to several medications, including decongestants, Zithromax, Amoxicillin, and Doxycycline, and cannot take them. The patient is currently using Flonase nasal spray. The patient had a gallbladder removal in February and has a history of possible thyroid cancer, GERD, diabetes, and high cholesterol. The patient does not report recent exposure to illness or having lung issues, althoug Chief Complaint: Flu like Time Seen by MD: 13:05 Primary Care Provider: NONE Reviewed notes: Medications, Allergies Information Source: Patient Mode of Arrival: Ambulatory Severity: Moderate Timing: Days Duration: Since onset Context: At Rest PE Risk Factors: None Prehospital treatment: None Modifying Factors: Nothing Associated Signs and Symptoms: Nasal Congestion Past Medical History PAST MEDICAL HISTORY: DM, Gallstones, GERD, High Lipids, Thyroid Surgical History: Appendectomy, Cholecystectomy, , Hysterectomy 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 Eyes: Discharge noted, suggestive of possible conjunctivitis.) Neck: Full Range of Motion, Non-Tender, Normal, Normal Inspection Respiratory: Chest Non-Tender, Lungs Clear, No Accessory Muscle Use, No Respiratory Distress, Normal Breath Sounds Cardiovascular: No Edema, No JVD, No Murmur, No Gallop, Normal Peripheral Pulses, Regular Rate/Rhythm Breast Exam: Deferred Gastrointestinal: No Organomegaly, Non Tender, No Pulsatile Mass, Normal Bowel Sounds, Soft Genitalia: Deferred Pelvic: Deferred Rectal: Deferred Extremities: No calf tenderness, Normal capillary refill, Normal inspection, Normal range of motion, Non-tender, No pedal edema Musculoskeletal : Apperance: Normal Neurologic: Alert, cco & president II-XII nml as Tested, No Motor Deficits, Normal Affect, Normal Mood, No Sensory Deficits Cerebellar Function: Normal Reflexes: Normal Skin: Dry, Normal Color, Warm Lymphatic: No Adenopathy Was a procedure done? Was a procedure done?: No X-Ray, Labs, Meds, VS Vital Signs Date Time Temp Pulse Resp B/P (MAP) Pulse Ox O2 Delivery O2 Flow Rate FiO2 10/28/25 15:20 99.0 82 16 132/79 (96) 99 99.0 10/28/25 15:20 82 16 99 Room Air 10/28/25 13:57 98.3 111 20 123/81 96 98.3 X-Ray, Labs, Meds, VS Comment 55 year old female presented with flu-like symptoms that have persisted for approximately five days, with additional concerns of ear and nasal symptoms, possible conjunctivitis, and an ear infection Patient arrives alert and oriented, ABC's intact, afebrile, vital signs stable, saturating well in room air Additional MDM Review of External, Non-ED records: External records reviewed. Discussion with independent historian (EMS, family) history obtained from the patient/parents (if applicable) at bedside Chronic conditions affecting care: thyroid disease, DM, HLD Social determinants of health affecting care: None Consideration of admission (observation or admission): I considered escalation of care to admission for this patient, however given the reassuring workup, the patient is safe for outpatient management. ASSESSMENT: The patient likely has an upper respiratory tract infection with concurrent right ear infection and possible conjunctivitis. The ear infection was supported by the presence of fluid and redness in the right ear. Conjunctivitis was considered due to the discharge in the eyes upon waking. The presence of flu-like symptoms further supports the diagnosis of a viral infection. PLAN: - Treatment: Prescribed erythromycin ointment for the eyes. Advised continuation of Flonase nasal spray. - Tests: None indicated at this time. - Patient Education: Advised patient on the importance of completing the course of prescribed medications and avoiding known allergens. Discussed potential side effects and signs of worsening symptoms that require immediate care. - Follow-Up: Advised follow-up if symptoms do not improve or worsen. - Disposition: Prescriptions sent to [facility] on [address] as requested by the patient. On reevaluation, patient had symptomatic improvement. Patient is stable for discharge at this time. External notes reviewed. Test results and diagnostic imaging interpreted. All diagnostic findings, discharge care, education and instructions provided Follow-up with PCP in 2 to 3 days Patient verbalized understanding and agreed to treatment plan Vital signs stable, afebrile, no acute distress noted Patient ambulatory with strong steady gait Advised to return precautions for any new or worsening symptoms, return to ER immediately for re-evaluation Patient is aware that the purpose of this visit was for an acute medical emergency requiring emergent stabilization. Chronic conditions, including malignancies have not been ruled out. Patient is instructed to follow up with PCP as directed and discharge instructions for continued care and workup. If unable to arrange follow-up, patient is to return to the emergency department for reassessment. Patient (parent or legal guardian if applicable) was given verbal and written discharge instructions and acknowledges understanding. Time of 1ST Reevaluation: 15:35 Reevaluation 1ST: Improved Patient Education/Counseling: Diagnosis, Treatment Family Education/Counseling: No Family Present SEPSIS Sepsis Screen Date sepsis recognized/suspect: Oct 28, 2025 Time Sepsis recognized/suspect: 1356 Recent Procedure: No On Antibiotic Therapy: No Respiratory Rate >20: No Heart Rate >90: Yes Temp<36 C (96.8 F) or >38.3 C: No SBP <90 or MAP <65 mmHG: No New Acute Mental Status Change: No Is the patient on CPAP, BIPAP,: No Vital Signs Date Time Temp Pulse Resp B/P (MAP) Pulse Ox O2 Delivery O2 Flow Rate FiO2 10/28/25 15:20 99.0 82 16 132/79 (96) 99 99.0 10/28/25 15:20 82 16 99 Room Air 10/28/25 13:57 98.3 111 20 123/81 96 98.3 Departure 1 Departure Time of Disposition: 15:12 Impression: Primary Impression: Acute bronchitis Disposition: 01 HOME / SELF CARE / HOMELESS Condition: Stable e-Prescriptions Amoxicillin & Pot Clavulanate (AUGMENTIN TABLET) 875 Mg Tb 875 MG PO BID for 7 Days, #14 TAB 0 Refills Prov: MELIZA JORGE NP 10/28/25 Benzonatate (Benzonatate) 100 Mg Cap 1 CAP PO TID for 10 Days, #30 CAP 0 Refills Prov: MELIZA JORGE NP 10/28/25 Erythromycin (Erythromycin) 5 Mg/Gm Oin 1 APPLIC OP BID for 7 Days, #3.5 OIN 0 Refills Prov: MELIZA JORGE NP 10/28/25 Critical Care Note Critical Care Time?: No Stability Stability form required: No Heart Score Heart Score: Heart Score Response (Comments) Value History N/A 0 EKG N/A 0 Age N/A 0 Risk Factors N/A 0 Troponin N/A 0 Total 0 I personally scribed for MELIZA JORGE NP ([email or web address]) on 10/28/25 at 16:20. Electronically submitted by Nataliia Bernal ([email or web address]). MELIZA JORGE NP Oct 28, 2025 15:14
[2025-10-28 15:20] VITALS: BP 132/79; PULSE 82; RESP 16; TEMP 99; O2SAT 99
== END 2025-10-28 15:38 | disposition home or self-care (01) ==
LOC: ER 13:56
DX: J20.9 Acute bronchitis, unspecified (principal); E11.9 Type 2 diabetes mellitus without complications; Z88.0 Allergy status to penicillin; Z90.49 Acquired absence of other specified parts of digestive tract; Z90.710 Acquired absence of both cervix and uterus; Z79.899 Other long term (current) drug therapy

== ENCOUNTER 2025-11-15 18:00 | Emergency (ER) | payer MEDICAID ==
[~2025-11-15] VITALS: Ht 160 cm; Wt 107.6 kg
[~2025-11-15 18:00] MED LIST changes: +ERY05OO OP
--- NOTE | 2025-11-15 20:02 | ED.PDOC ---
History of Present Illness HPI Comments 55 y/o F, with PMHx of GERD, DM, HLD, and thyroid disease presents to the ED for CC of flu-like symptoms. Patient states, she has been experiencing flu-like symptoms including: cough, nasal congestion, and ear pain [id number]. Patient denies sore-throat, fever, chills, body-aches, or loss of taste and smell. No other symptoms or modifying factors are present at this time. Chief Complaint: Flu like Time Seen by MD: 19:50 Primary Care Provider: NONE Reviewed Notes: Nurses Notes, Medications, Allergies Allergies: Coded Allergies: Acetaminophen (Verified Allergy, Unknown, 10/28/25) Azithromycin (Verified Allergy, Unknown, 02/14/22) Guaifenesin (Verified Allergy, Unknown, 02/14/22) Hydrocodone (Verified Allergy, Unknown, 10/28/25) Levofloxacin (Verified Allergy, Unknown, 10/28/25) Piperacillin (Verified Allergy, Unknown, 06/14/23) Pseudoephedrine (Verified Allergy, Unknown, 02/14/22) Tazobactam (Verified Allergy, Unknown, 06/14/23) Tetracycline (Verified Allergy, Unknown, 02/14/22) Vancomycin (Verified Allergy, Unknown, 10/28/25) Home Meds Active Scripts Promethazine-Dm (Promethazine Dm 6.25-15 mg/5Ml) 1 [place], 1 TSP PO Q6HP PRN, #120 ML Prov:ERICKA WILSON MD 11/15/25 Prednisone (Prednisone) 20 Mg Tab, 20 MG PO BID for 5 Days, #10 TAB Prov:ERICKA WILSON MD 11/15/25 Azithromycin (Azithromycin) 500 Mg Tab, 1 TAB PO DAILY for 5 Days, #5 TAB Prov:ERICKA WILSON MD 11/15/25 Amoxicillin & Pot Clavulanate (AUGMENTIN TABLET) 875 Mg Tb, 875 MG PO BID for 7 Days, #14 TAB 0 Refills Prov:MELIZA JORGE NP 10/28/25 Benzonatate (Benzonatate) 100 Mg Cap, 1 CAP PO TID for 10 Days, #30 CAP 0 Refills Prov:MELIZA JORGE NP 10/28/25 Erythromycin (Erythromycin) 5 Mg/Gm Oin, 1 APPLIC OP BID for 7 Days, #3.5 OIN 0 Refills Prov:MELIZA JORGE SENIOR DATA SCIENTIST 10/28/25 Cephalexin (KEFLEX CAPSULE) 250 Mg Cp, 2 CAP PO BID for 7 Days, #28 CAP Prov:BETHANY CARVAJAL DO 03/06/25 Ondansetron Odt 4MG Tab (ZOFRAN PO) 4 Mg Tb, 4 MG PO BID for 10 Days, #20 TAB ODT TAB-DISSOLVE IN MOUTH, THEN SWALLOW Prov:BETHANY CARVAJAL DO 03/06/25 Naproxen (NAPROSYN TABLET) 500 Mg Tb, 1 TAB PO BID for 10 Days, #20 TAB 1 Refill Prov:BETHANY CARAVJAL DO 03/06/25 Amlodipine Besylate (NORVASC TABLET) 5 Mg Tb, 5 MG PO DAILY for 30 Days, #30 TAB 0 Refills Prov:BETHANY CARVAJAL DO 03/06/25 Pantoprazole Sodium Sesquihydr (Protonix) 40 Mg Tab, 40 MG PO QAM for 30 Days, #30 TAB 0 Refills Prov:BETHANY CARVAJAL DO 03/06/25 Pantoprazole Sodium Sesquihydr (Protonix) 40 Mg Tab, 40 MG PO DAILY, #30 TAB 3 Refills Prov:BETHANY CARVAJAL DO 03/06/25 Amlodipine Besylate (NORVASC TABLET) 5 Mg Tb, 1 TAB PO DAILY, #90 TAB 3 Refills Prov:BETHANY CARVAJAL DO 03/06/25 Ondansetron Odt 4MG Tab (ZOFRAN PO) 4 Mg Tb, 4 MG PO BID PRN for 10 Days, #20 TAB ODT TAB-DISSOLVE IN MOUTH, THEN SWALLOW Prov:BETHANY CARVAJAL DO 03/06/25 Naproxen (NAPROSYN TABLET) 500 Mg Tb, 1 TAB PO TID for 10 Days, #30 TAB 1 Refill Prov:BETHANY CARVAJAL DO 03/06/25 Docusate Sodium (Colace) 100 Mg Cap, 1 CAP PO BID for 10 Days, #20 CAP Prov:BETHANY CARVAJAL DO 03/05/25 Cephalexin (KEFLEX CAPSULE) 250 Mg Cp, 2 CAP PO BID for 5 Days, #20 CAP Prov:BETHANY CARVAJAL DO 03/05/25 Benzonatate (Benzonatate) 100 Mg Cap, 1 CAP PO TID for 10 Days, #30 CAP 0 Refills Prov:LUISITOMELIZA DEAN Anna SENIOR DATA SCIENTIST 02/05/25 Albuterol Sulfate (Albuterol Sulfate Hfa) 108 Mcg/Act Aer, 108 MCG IN Q6HP PRN for 30 Days, #1 AER 0 Refills Prov:MELIZA JORGE SENIOR DATA SCIENTIST 02/05/25 Prednisone (Prednisone) 20 Mg Tab, 60 MG PO QAM, #15 TAB Prov:GÓMEZ ARTEAGA 01/31/25 Promethazine-Dm (Promethazine Dm 6.25-15 mg/5Ml) 1 [place], 5 ML PO TID, #160 ML Prov:GÓMEZ ARTEAGA 01/31/25 Cephalexin Monohydrate (Cephalexin) 500 Mg Cap, 1 CAP PO QID, #32 CAP Prov:GÓMEZ ARTEAGA 01/31/25 Pantoprazole Sodium Sesquihydr (Protonix) 40 Mg Tab, 40 MG PO DAILY for 3 Days, #30 TAB 1 Refill Prov:CORINA MORELAND SENIOR DATA SCIENTIST 12/21/24 Reported Medications Cholecalciferol (VITAMIN D3) 2,000 Unit Tab, 2000 UNIT PO, TAB 03/02/25 Information Source: Patient Mode of Arrival: Ambulatory Severity: Moderate Timing: Weeks Duration: Since onset Prehospital treatment: None Past Medical History PAST MEDICAL HISTORY: DM, Gallstones, GERD, High Lipids, Thyroid Surgical History: Appendectomy, Cholecystectomy, , Hysterectomy 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 MINE CAPTAIN History Family History Family History: Reviewed,noncontributory to illness, Family hx of DM, Family hx of Cancer, Family hx of HTN Social History Smoker: Non-Smoker Alcohol: Denies ETOH Use Drugs: Denies Drug Use Lives In: Home Constitutional: denies: chills, diaphoresis, fatigue, fever, malaise, sweats, weakness, others EENTM: reports: ear pain, nose congestion; denies: blurred vision, double vision, ear bleeding, ear discharge, ear drainage, ear ringing, eye pain, eye redness, hearing loss, mouth pain, mouth swelling, nasal discharge, nose bleeding, nose pain, photophobia, tearing, throat pain, throat swelling, voice changes, others Respiratory: reports: cough; denies: hemoptysis, orthopnea, SOB at rest, sh ortness of breath, SOB with excertion, stridor, wheezing, others Cardiovascular: denies: chest pain, dizzy spells, diaphoresis, Dyspnea on exertion, edema, irregular heart beat, left arm pain, lightheadedness, palpitations, PND, syncope, others Gastrointestinal: denies: abdomen distended, abdominal pain, blood streaked bowels, constipated, diarrhea, dysphagia, difficulty swallowing, hematemesis, melena, nausea, poor appetite, poor fluid intake, rectal bleeding, rectal pain, vomiting, others Genitourinary: denies: abnormal vagina bleeding, burning, dyspareunia, dysuria, flank pain, frequency, hematuria, incontinence, pain, , vagina discharge, urgency, others Neurological: denies: dizziness, fainting, headache, left sided numbness, left sided weakness, numbness, paresthesia, pre-existing deficit, right sided numbness, right sided weakness, seizure, speech problems, tingling, tremors, weakness, others Musculoskeletal: denies: back pain, gout, joint pain, joint swelling, muscle pain, muscle stiffness, neck pain, others Integumetry: denies: bruises, change in color, change in hair/nails, dryness, laceration, lesions, lumps, rash, wounds, others Allergic/Immunocompromised: denies: Difficulty Healing, Frequent Infections, Hives, Itching, others Hematologic/Lymphatic: denies: anemia, blood clots, easy bleeding, easy bruising, swollen glands, others Endocrine: denies: excessive hunger, excessive sweating, excessive thirst, excessive urination, flushing, intolerance to cold, intolerance to heat, unexplained weight gain, unexplained weight loss, others Psychiatric: denies: anxiety, bipolar disorder, depression, hopeless, panic disorder, schizophrenia, sleepless, suicidal, others All Other Systems: Reviewed and Negative Physical Exam General Appearance: Mild Distress HEENT: Normal ENT Inspection, Pharynx Normal, TMs Normal Neck: Full Range of Motion, Non-Tender, Normal, Normal Inspection Respiratory: Chest Non-Tender, Lungs Clear, No Accessory Muscle Use, No Respiratory Distress, Normal Breath Sounds Cardiovascular: No Edema, No JVD, No Murmur, No Gallop, Normal Peripheral Pulses, Regular Rate/Rhythm Breast Exam: Deferred Gastrointestinal: No Organomegaly, Non Tender, No Pulsatile Mass, Normal Bowel Sounds, Soft Genitalia: Deferred Pelvic: Deferred Rectal: Deferred Extremities: No calf tenderness, Normal capillary refill, Normal inspection, Normal range of motion, Non-tender, No pedal edema Musculoskeletal : Apperance: Normal Neurologic: Alert, acoustic engineer II-XII nml as Tested, No Motor Deficits, Normal Affect, Normal Mood, No Sensory Deficits Cerebellar Function: Normal Reflexes: Normal Skin: Dry, Normal Color, Warm Lymphatic: No Adenopathy Was a procedure done? Was a procedure done?: No Differential Dx Considerations may include: VIRAL SYNDROME, URI, COVID-19, INFLUENZA, SINUSITIS, OTITIS MEDIA X-Ray, Labs, Meds, VS Vital Signs Date Time Temp Pulse Resp B/P (MAP) Pulse Ox O2 Delivery O2 Flow Rate FiO2 11/15/25 21:01 98.6 89 18 112/57 (75) 97 98.6 11/15/25 21:01 97 0 11/15/25 18:04 98.3 108 20 149/85 97 98.3 Current Medications Medications (Trade) Dose Ordered Sig/Charisse Route Start Time Stop Time Status Last Admin Prednisone 40 mg ONCE ONCE PO 11/15/25 21:45 11/15/25 21:46 DC 11/15/25 22:25 Promethazine HCl/ Dextromethorphan (Phenergan-Dm) 5 ml ONCE ONCE PO 11/15/25 21:45 11/15/25 21:46 DC 11/15/25 22:25 Time of 1ST Reevaluation: 20:20 Reevaluation 1ST: Unchanged Patient Education/Counseling: Diagnosis, Treatment Family Education/Counseling: No Family Present SEPSIS Sepsis Screen Date sepsis recognized/suspect: Nov 15, 2025 Time Sepsis recognized/suspect: 1805 Recent Procedure: No On Antibiotic Therapy: No Respiratory Rate >20: No Heart Rate >90: Yes Temp<36 C (96.8 F) or >38.3 C: No SBP <90 or MAP <65 mmHG: No New Acute Mental Status Change: No Is the patient on CPAP, BIPAP,: No Vital Signs Date Time Temp Pulse Resp B/P (MAP) Pulse Ox O2 Delivery O2 Flow Rate FiO2 11/15/25 21:01 98.6 89 18 112/57 (75) 97 98.6 11/15/25 21:01 97 0 11/15/25 18:04 98.3 108 20 149/85 97 98.3 Medications Medications Dose Ordered Sig/Charisse Route Start Time Stop Time Status Last Admin Dose Admin Prednisone 40 mg ONCE ONCE PO 11/15/25 21:45 11/15/25 21:46 DC 11/15/25 22:25 Promethazine HCl/ Dextromethorphan 5 ml ONCE ONCE PO 11/15/25 21:45 11/15/25 21:46 DC 11/15/25 22:25 Departure 1 Departure Time of Disposition: 03:00 Impression: Primary Impression: URI (upper respiratory infection) Disposition: 01 HOME / SELF CARE / HOMELESS Condition: Stable e-Prescriptions Promethazine-Dm (Promethazine Dm 6.25-15 mg/5Ml) 1 [place] 1 TSP PO Q6HP PRN, #120 ML Prov: ERICKA WILSON MD 11/15/25 Prednisone (Prednisone) 20 Mg Tab 20 MG PO BID for 5 Days, #10 TAB Prov: ERICKA WILSON MD 11/15/25 Azithromycin (Azithromycin) 500 Mg Tab 1 TAB PO DAILY for 5 Days, #5 TAB Prov: ERICKA WILSON MD 11/15/25 Discharged With: Self Critical Care Note Critical Care Time?: No Stability Stability form required: No Heart Score Heart Score: Heart Score Response (Comments) Value History N/A 0 EKG N/A 0 Age N/A 0 Risk Factors N/A 0 Troponin N/A 0 Total 0 I personally scribed for ERICKA WILSON MD ([email or web address]) on 11/15/25 at 20:02. Electronically submitted by Erica Dinero ([email or web address]). ERICKA WILSON MD Nov 15, 2025 20:02
[2025-11-15 21:01] VITALS: BP 112/57; PULSE 89; RESP 18; TEMP 98.6; O2SAT 97
[2025-11-15] MEDS ORDERED: PRED20TA2 PO (21:33)
[2025-11-15] MEDS ORDERED: PROM1SOL4 PO (21:33)
[2025-11-15] MEDS ORDERED: AZIT500T66 PO (21:33)
[2025-11-15] MEDS: predniSONE 20 MG TAB PO ONE (22:25)
[2025-11-15] MEDS: PROMETHAZINE-DM 5 ML ORAL SYRUP PO ONE (22:25)
== END 2025-11-15 22:30 | disposition home or self-care (01) ==
LOC: ER 18:00
DX: J06.9 Acute upper respiratory infection, unspecified (principal); H92.09 Otalgia, unspecified ear; E11.9 Type 2 diabetes mellitus without complications; E03.9 Hypothyroidism, unspecified; K21.9 Gastro-esophageal reflux disease without esophagitis; E78.5 Hyperlipidemia, unspecified; Z79.899 Other long term (current) drug therapy; Z90.49 Acquired absence of other specified parts of digestive tract; Z90.710 Acquired absence of both cervix and uterus; Z88.0 Allergy status to penicillin; Z88.1 Allergy status to other antibiotic agents; Z88.5 Allergy status to narcotic agent; Z88.8 Allergy status to other drugs, medicaments and biological substances
CPT/HCPCS: 99283; J7512